=== PATIENT | female | born 1965 | race Caucasian/White ===

== ENCOUNTER 2017-08-17 11:52 | Emergency (ER) | payer MEDICAID, SELFPAY | END 2017-08-17 14:22 | disposition home or self-care (01) | PROVIDERS: Emergency Provider Nurse Practitioner Family; Family Provider Family Medicine Addiction Medicine; Visit Provider Nurse Practitioner Family | DX: M54.5 Low back pain (principal); Z88.6 Allergy status to analgesic agent; I10 Essential (primary) hypertension; K21.9 Gastro-esophageal reflux disease without esophagitis; E03.9 Hypothyroidism, unspecified | CPT/HCPCS: 96372; 99202 ==

== ENCOUNTER 2017-08-18 18:53 | Emergency (ER) | payer MEDICAID, SELFPAY | END 2017-08-18 21:57 | disposition home or self-care (01) | PROVIDERS: Emergency Provider Emergency Medicine; Family Provider Family Medicine Addiction Medicine; Visit Provider Emergency Medicine | DX: M54.42 Lumbago with sciatica, left side (principal); Z79.891 Long term (current) use of opiate analgesic | CPT/HCPCS: 96372; 99284; J2405 ==

== ENCOUNTER 2017-09-09 13:27 | Emergency (ER) | payer MEDICAID, SELFPAY ==
[2017-09-09 13:33] VITALS: BP 150/109; PULSE 109; RESP 24; TEMP 36.8; O2SAT 99; BMI 34.7
[2017-09-09 14:35] VITALS: BP 140/87; PULSE 97; RESP 18; TEMP 36.6; O2SAT 95
[2017-09-09 15:00] VITALS: BP 136/87; PULSE 115; TEMP 36.9; O2SAT 95
--- NOTE | 2017-09-09 15:57 | HMH.EDBACK ---
ED Disposition Clinical Impression: Lumbar pain Disposition: Home, Self-Care Condition on Discharge: Good Instructions: DI for Low Back Pain Additional Instructions: Please follow-up with your pain management physician as already scheduled. Take her medications prescribed today, as needed for pain. Prescriptions: Etodolac [Lodine 400mg Tab] 400 mg PO BID #20 tab Referrals: Anna Evans [Primary Care Provider] - Time of Disposition: 15:57 - Critical Care Critical Care Time: No Attestation: On 09/09/17, the high probability of a clinically significant, sudden or life threatening deterioration of the following system(s) required my full and direct attention, intervention and personal management. The time I documented below is in addition to time spent performing reported procedures but includes the following listed in this critical care notation. Medical Decision Making - Medical Records Medical records reviewed: Yes: I reviewed the patient's medical records. Vital Signs: 09/09/17 13:33 09/09/17 14:35 09/09/17 15:00 Temperature 98.2 F 97.8 F 98.4 F Temperature Source Oral Oral Oral Pulse Rate Pulse Rate [Left Brachial] 109 H 97 H 115 H Respiratory Rate 24 18 Blood Pressure Blood Pressure [Left Arm] 150/109 Blood Pressure [Right Arm] 140/87 136/87 Blood Pressure Mean [Left Arm] 122 Blood Pressure Mean [Right Arm] 104 103 Blood Pressure Source Blood Pressure Source [Left Arm] Automatic Cuff Blood Pressure Source [Right Arm] Automatic Cuff Automatic Cuff Blood Pressure Position Blood Pressure Position [Left Arm] Right Lateral Blood Pressure Position [Right Arm] Supine Sitting 02 Sat by Pulse Oximetry 99 95 95 Oxygen Delivery Method Room Air Room Air Room Air 09/09/17 17:09 Temperature Temperature Source Pulse Rate 116 H Pulse Rate [Left Brachial] Respiratory Rate 20 Blood Pressure 147/81 Blood Pressure [Left Arm] Blood Pressure [Right Arm] Blood Pressure Mean [Left Arm] Blood Pressure Mean [Right Arm] Blood Pressure Source Automatic Cuff Blood Pressure Source [Left Arm] Blood Pressure Source [Right Arm] Blood Pressure Position Sitting Blood Pressure Position [Left Arm] Blood Pressure Position [Right Arm] 02 Sat by Pulse Oximetry Oxygen Delivery Method Room Air Orders (Tests/Meds): ED MEDICATIONS Discontinued Medications Generic Name Dose Route Start Last Admin Trade Name Freq PRN Reason Stop Dose Admin Hydromorphone HCl 1 mg 09/09/17 13:58 09/09/17 14:30 Dilaudid 2mg/Ml Syringe IM 09/09/17 13:59 1 mg ONCE ONE Administration Ondansetron HCl 4 mg 09/09/17 13:58 09/09/17 14:31 Zofran 4mg/2ml Vial IM 09/09/17 13:59 4 mg ONCE ONE Administration - Jozef Inquiry Pt receiving controlled substance: No - Reevaluation(s) Time: 15:40 Reevaluation #1: up in the chair, medically stable, significantly better. Instructed to follow up with [facility] History I have reviewed the patient's past medical history: Yes Medical History: Denies:: Cancer, Diabetes Mellitus Type 1, Diabetes Mellitus Type 2, MRSA Amputation: No Fractures: Yes (COLLAR BONE;SHOULDER;ARM FRACTURES-LEFT SIDE) - *Social History Educational Level: Completed Grade School Smoking Status: Never smoker Alcohol Intake: never - Psychiatric History Expresses thoughts of harming self/others: None Suicide Plan Description: No Plan ROS Obtained: Yes All systems reviewed & no additional complaints - Musculoskeletal Musculoskeletal: Reports as per HPI, Reports back pain Physical Exam - General General appearance: alert, in distress (moderate) - Head Head exam: atraumatic, normocephalic, normal inspection - Eye Eye exam: Present: normal appearance, PERRL, EOMI - ENT ENT exam: Present: normal exam, normal oropharynx, mucous membranes moist, TM's normal bilaterally, normal external ear exam - Neck Neck exam: Present: normal inspectio
[2017-09-09 17:09] VITALS: BP 147/81; PULSE 116; RESP 20; O2SAT 96
== END 2017-09-09 17:11 | disposition home or self-care (01) ==
PROVIDERS: Emergency Provider Emergency Medicine; Family Provider Family Medicine Addiction Medicine; PCP Family Medicine Addiction Medicine
DX: M54.5 Low back pain (principal); Z79.899 Other long term (current) drug therapy
CPT/HCPCS: 96372; 99283; J2405

== ENCOUNTER 2017-10-01 13:49 | Emergency (ER) | payer MEDICAID, SELFPAY ==
[2017-10-01 14:11] VITALS: BP 141/85; PULSE 87; RESP 20; TEMP 37.1; O2SAT 98; BMI 34.7
--- NOTE | 2017-10-01 14:49 | HMH.EDUTC ---
[facility] [place] Disposition Clinical Impression: Chronic leg pain Qualifiers: Laterality: right Qualified Code(s): M79.604 - Pain in right leg; G89.29 - Other chronic pain Disposition: Home, Self-Care Condition on Discharge: Good Instructions: DI for Chronic Pain -- Adult Additional Instructions: Follow up with Pain management as scheduled FOllow up with family doctor for further treatment Return if needed You got a Tordol shot in the office today, no ibuprofen for the next 6 hour Referrals: Anna Evans [Primary Care Provider] - Time of Disposition: 15:10 Medical Decision Making - Medical Records Medical records reviewed: Yes: I reviewed the patient's medical records. Vital Signs: 10/01/17 14:11 Temperature 98.8 F Temperature Source Temporal Artery Scan Pulse Rate [Right] 87 Respiratory Rate 20 Blood Pressure [Right Arm] 141/85 Blood Pressure Mean [Right Arm] 103 Blood Pressure Source [Right Arm] Automatic Cuff Blood Pressure Position [Right Arm] Sitting 02 Sat by Pulse Oximetry 98 Oxygen Delivery Method Room Air - Jozef Inquiry Pt receiving controlled substance: No Jozef was queried for this patient: No [facility] [place] HPI - General Stated complaint: R Hip pain down leg and foot,no ao Mode of Arrival: Ambulatory Source of Information: Patient Limitations: No Limitations Description of Symptoms (Recalled from Triage Doc. by RN): RIGHT LOW BACK PAIN DOWN RIGHT LEG HEENT Symptoms (Recalled from RN notes): No Resp Symptoms (Recalled from RN notes): No Skin Symptoms (Recalled from RN notes): No MS Symptoms (Recalled from RN notes): Yes Functional Status (Recalled from RN notes): N - History of Present Illness Provider Complaint: Patient state that she is currently being seen and treated by pain management for chronic pain in left leg States that she was having pain in her leg today and she missed her appointment so she was here to see if there was anything we could give her for pain - Related Data Allergies Allergy/AdvReac Type Severity Reaction Status Date / Time tramadol Allergy Unknown HEART Verified 09/09/17 14:21 PALPITATIONS - Worker's Comp Is this a Worker's Comp case?: No [facility] History I have reviewed the patient's past medical history: Yes Medical History: Denies:: Cancer, Diabetes Mellitus Type 1, Diabetes Mellitus Type 2, MRSA Amputation: No Fractures: Yes (COLLAR BONE;SHOULDER;ARM FRACTURES-LEFT SIDE) - *Social History Smoking Status: Never smoker Alcohol Intake: never - Psychiatric History Expresses thoughts of harming self/others: None Suicide Plan Description: No Plan ROS Obtained: Yes All systems reviewed & no additional complaints Physical Exam - General General appearance: alert, in no apparent distress - Respiratory Respiratory exam: Present: normal lung sounds bilaterally. Absent: respiratory distress - Cardiovascular Cardiovascular exam: Present: regular rate, normal rhythm. Absent: JVD - Neurological Exam Neurological exam: Present: alert, oriented X3 - Other Other exam information: Patient has chronic pain in right leg, state that she missed her appointment today with pain management and needed something to help her with the pain in her right leg, patient educated that she needed to keep those appointments and follow up with family doctor for further treatment
--- NOTE | 2017-10-01 14:57 | ED_ITS ---
[facility] – [place] Disposition Clinical Impression: Chronic leg pain Qualifiers: Laterality: right Qualified Code(s): M79.604 - Pain in right leg; G89.29 - Other chronic pain Disposition: Home, Self-Care Condition on Discharge: Good Instructions: DI for Chronic Pain -- Adult Additional Instructions: Follow up with Pain management as scheduled FOllow up with family doctor for further treatment Return if needed You got a Tordol shot in the office today, no ibuprofen for the next 6 hour Referrals: Anna Evans [Primary Care Provider] - Time of Disposition: 15:10 Medical Decision Making - Medical Records Medical records reviewed: Yes: I reviewed the patient's medical records. Vital Signs: 10/01/17 14:11 Temperature 98.8 F Temperature Source Temporal Artery Scan Pulse Rate [Right] 87 Respiratory Rate 20 Blood Pressure [Right Arm] 141/85 Blood Pressure Mean [Right Arm] 103 Blood Pressure Source [Right Arm] Automatic Cuff Blood Pressure Position [Right Arm] Sitting 02 Sat by Pulse Oximetry 98 Oxygen Delivery Method Room Air - Jozef Inquiry Pt receiving controlled substance: No Jozef was queried for this patient: No [facility] [place] HPI - General Stated complaint: R Hip pain down leg and foot,no ao Mode of Arrival: Ambulatory Source of Information: Patient Limitations: No Limitations Description of Symptoms (Recalled from Triage Doc. by RN): RIGHT LOW BACK PAIN DOWN RIGHT LEG HEENT Symptoms (Recalled from RN notes): No Resp Symptoms (Recalled from RN notes): No Skin Symptoms (Recalled from RN notes): No MS Symptoms (Recalled from RN notes): Yes Functional Status (Recalled from RN notes): N - History of Present Illness Provider Complaint: Patient state that she is currently being seen and treated by pain management for chronic pain in left leg States that she was having pain in her leg today and she missed her appointment so she was here to see if there was anything we could give her for pain - Related Data Allergies Allergy/AdvReac Type Severity Reaction Status Date / Time tramadol Allergy Unknown HEART Verified 09/09/17 14:21 PALPITATIONS - Worker's Comp Is this a Worker's Comp case?: No [facility] History I have reviewed the patient's past medical history: Yes Medical History: Denies:: Cancer, Diabetes Mellitus Type 1, Diabetes Mellitus Type 2, MRSA Amputation: No Fractures: Yes (COLLAR BONE;SHOULDER;ARM FRACTURES-LEFT SIDE) - *Social History Smoking Status: Never smoker Alcohol Intake: never - Psychiatric History Expresses thoughts of harming self/others: None Suicide Plan Description: No Plan ROS Obtained: Yes All systems reviewed & no additional complaints Physical Exam - General General appearance: alert, in no apparent distress - Respiratory Respiratory exam: Present: normal lung sounds bilaterally. Absent: respiratory distress - Cardiovascular Cardiovascular exam: Present: regular rate, normal rhythm. Absent: JVD - Neurological Exam Neurological exam: Present: alert, oriented X3 - Other Other exam information: Patient has chronic pain in right leg, state that she missed her appointment today with pain management and needed something to help her with the pain in her right leg, patient educated that she needed to keep those appointments and follow up with family doctor for further treatment
[2017-10-01 15:24] VITALS: BP 140/80; PULSE 87; RESP 20; TEMP 37.1
== END 2017-10-01 15:29 | disposition home or self-care (01) ==
PROVIDERS: Emergency Provider Nurse Practitioner; Family Provider Family Medicine Addiction Medicine; PCP Family Medicine Addiction Medicine
DX: G89.29 Other chronic pain (principal); M79.604 Pain in right leg; M54.5 Low back pain
CPT/HCPCS: 96372; 99201

== ENCOUNTER → 2018-02-04 13:11 | Outpatient (CLI) | payer MEDICAID, SELFPAY ==
[2018-02-04 15:34] LABS: Free T4 (Free Thyroxine) 0.65 ng/dl (0.76-1.46); Thyroid Stimulating Hormone 8.73 uIU/ml (0.358-3.740)
== END ==
PROVIDERS: Visit Provider Family Medicine Addiction Medicine
DX: E03.9 Hypothyroidism, unspecified (principal)
CPT/HCPCS: 36415; 84439; 84443

== ENCOUNTER 2020-12-22 11:59 | Emergency (ER) | payer MEDICARE, MEDICAID, SELFPAY ==
[2020-12-22 12:25] VITALS: BP 153/92; PULSE 75; RESP 19; TEMP 37.1; O2SAT 98; BMI 35.1
--- NOTE | 2020-12-22 12:55 | HMH.EDUTC ---
[facility] [place]: COPD exacerbation Disposition: Home, Self-Care Condition on Discharge: Good Instructions: DI for Chronic Obstructive Pulmonary Disease Additional Instructions: Drink plenty of fluids. Take tylenol or ibuprofen for pain or fever. Take the medications as directed. Follow up with your regular doctor. GO TO THE ER FOR ANY WORSENING SYMPTOMS Prescriptions: predniSONE [Prednisone 20mg Tab] 20 mg PO BID 5 Days #10 tab Transmission Status: Received by [employer] # Benzonatate [Tessalon Perle 100mg Cap] 100 mg PO TIDP PRN #30 cap PRN Reason: Cough Transmission Status: Received by [employer] # Azithromycin [Z-Joseph 250mg Tab*] 250 mg PO UD DOSE PK #6 tab Transmission Status: Received by [employer] # Referrals: PCP,No [Primary Care Provider] - Time of Disposition: 12:59 Medical Decision Making - Medical Records Medical records reviewed: No: I reviewed the patient's medical records. - Jozef Inquiry Pt receiving controlled substance: No Vital Signs: 12/22/20 12:25 12/22/20 13:34 Temperature 98.7 F 98.3 F Temperature Source Oral Pulse Rate 74 Pulse Rate [Right] 75 Respiratory Rate 19 20 Blood Pressure 144/89 H Blood Pressure [Right Arm] 153/92 H Blood Pressure Mean [Right Arm] 112 Blood Pressure Source [Right Arm] Automatic Cuff Blood Pressure Position [Right Arm] Sitting 02 Sat by Pulse Oximetry 98 [facility] [place] - General Stated complaint: covid test, cov symptoms Time Seen by Provider: 12/22/20 12:35 Mode of Arrival: Ambulatory Source of Information: Patient Limitations: No Limitations Description of Symptoms (Recalled from Triage Doc. by RN): PT C/O NONPRODUCTIVE COUGH, CHEST CONGESTION AND A HALEY. THIS HAS BEEN ONGOING FOR THREE DAYS. NO EXPOSURE TO COVID THAT SHE IS AWARE OF. HEENT Symptoms (Recalled from RN notes): Yes (HALEY) Resp Symptoms (Recalled from RN notes): Yes (NON PRODUCTIVE COUGH AND CHEST CONGESTION) Skin Symptoms (Recalled from RN notes): No MS Symptoms (Recalled from RN notes): No Functional Status (Recalled from RN notes): NA - History of Present Illness Provider Complaint: She states that she has been having cough and chest congestion for the past 2 days. She has a history of copd. She denies any known exposure to covid-19. - Related Data Home Medications Medication Instructions Recorded Confirmed bisoprolol 5 1 tab PO ONCE 11/07/17 04/12/18 mg-hydrochlorothiazide 6.25 mg tablet Cetirizine HCl 10 mg PO DAILY 01/11/18 04/12/18 Duloxetine HCl 60 mg PO DAILY 01/11/18 04/12/18 Levothyroxine Sodium 125 mcg PO DAILY 01/11/18 04/12/18 [Levothyroxine 112mcg (0.112mg) Tab] Omeprazole [Omeprazole 40mg 40 mg PO DAILY 01/11/18 04/12/18 Capsule] Pregabalin [Lyrica 100mg Cap] 100 mg PO BID 01/11/18 04/12/18 Previous Rx's Medication Instructions Recorded Hydrocod/Acet 5/325 mg [[place] 1 tab PO Q6HP PRN #10 tab 04/12/18 5/325mg tablet] predniSONE [Prednisone 10mg Tab 10 mg PO DAILY #42 pack 04/12/18 Dose-Pack] estradiol 1 mg tablet 1 mg PO DAILY 30 Days #30 tab 07/11/18 Azithromycin [Z-Joseph 250mg Tab*] 250 mg PO UD DOSE PK #6 tab 12/22/20 Benzonatate [Tessalon Perle 100mg 100 mg PO TIDP PRN #30 cap 12/22/20 Cap] predniSONE [Prednisone 20mg 20 mg PO BID 5 Days #10 tab 12/22/20 Tab] Allergies Allergy/AdvReac Type Severity Reaction Status Date / Time tramadol Allergy Unknown HEART Verified 12/22/20 12:04 PALPITATIONS - Worker's Comp Is this a Worker's Comp case?: No H History - Hepatitis A Screen Drug use history?: No High risk sexual behaviors?: No History of sexually transmitted infection?: No Currently employed?: No Childcare worker?: No Do you have indoor plumbing?: Yes Do you have electricity?: Yes Attestation statement:: This patient has been screened for Hepatitis A risk factors. I have reviewed the siri
[2020-12-22 13:34] VITALS: BP 144/89; PULSE 74; RESP 20; TEMP 36.8
--- NOTE | 2020-12-22 18:12 | PC.NURSE ---
pt notified of positive covid test results
== END 2020-12-22 13:09 | disposition home or self-care (01) ==
PROVIDERS: Emergency Provider Nurse Practitioner Family
DX: J44.1 Chronic obstructive pulmonary disease with (acute) exacerbation (principal); Z20.822 Contact with and (suspected) exposure to COVID-19; I10 Essential (primary) hypertension; E11.9 Type 2 diabetes mellitus without complications; M79.7 Fibromyalgia; E03.9 Hypothyroidism, unspecified
CPT/HCPCS: G0463; 99202; U0003

== ENCOUNTER 2021-01-03 16:39 | Emergency (ER) | payer MEDICARE, MEDICAID, SELFPAY ==
[2021-01-03 16:40] VITALS: BP 109/82; PULSE 105; RESP 18; TEMP 36.9; O2SAT 94; BMI 34.5
--- NOTE | 2021-01-03 17:29 | HMH.EDUTC ---
[facility] [place] Clinical Impression: Sinusitis Qualifiers: Sinusitis location: unspecified location Chronicity: acute Recurrence: non-recurrent Qualified Code(s): J01.90 - Acute sinusitis, unspecified Disposition: Home, Self-Care Condition on Discharge: Good Instructions: DI for Sinusitis Additional Instructions: Drink plenty of fluids. Take tylenol or ibuprofen for pain or fever. Take the medications as directed. Follow up with your regular doctor. GO TO THE ER FOR ANY WORSENING SYMPTOMS Prescriptions: Amoxicillin [Amoxicillin 500mg Tab] 500 mg PO TID 10 Days #30 tab Transmission Status: Received by [employer] # predniSONE [Deltasone 10mg tablet] 10 mg PO BID 3 Days #6 tab Transmission Status: Received by [employer] # Referrals: Provider,Referral, [Primary Care Provider] - Time of Disposition: 17:33 Medical Decision Making - Medical Records Medical records reviewed: No: I reviewed the patient's medical records. - Jozef Inquiry Pt receiving controlled substance: No Vital Signs: 01/03/21 16:40 01/03/21 17:42 Temperature 98.5 F 98.5 F Temperature Source Oral Pulse Rate 105 H Pulse Rate [Right Brachial] 105 H Respiratory Rate 18 18 Blood Pressure 109/82 L Blood Pressure [Right Arm] 109/82 L Blood Pressure Mean [Right Arm] 91 Blood Pressure Source [Right Arm] Automatic Cuff Blood Pressure Position [Right Arm] Sitting 02 Sat by Pulse Oximetry 94 L Oxygen Delivery Method Room Air [facility] [place] - General Stated complaint: Left side face,dental pain Time Seen by Provider: 01/03/21 17:30 Mode of Arrival: Ambulatory Source of Information: Patient Limitations: No Limitations Description of Symptoms (Recalled from Triage Doc. by RN): PATIENT C/O PAIN AND PRESSURE TO LEFT SIDE OF FACE INTO GUMS AND EAR X 2 DAYS. RECENT HISTORY OF COVID HEENT Symptoms (Recalled from RN notes): Yes Resp Symptoms (Recalled from RN notes): No Skin Symptoms (Recalled from RN notes): No MS Symptoms (Recalled from RN notes): No Functional Status (Recalled from RN notes): WNL - History of Present Illness Provider Complaint: She c/o left sided facial pressure and pain. She also has nasal congestion. She had covid recently, but she got better from that and she is now off of quarentine. She thinks that she has a sinus infection . - Related Data Home Medications Medication Instructions Recorded Confirmed bisoprolol 5 1 tab PO ONCE 11/07/17 04/12/18 mg-hydrochlorothiazide 6.25 mg tablet Cetirizine HCl 10 mg PO DAILY 01/11/18 04/12/18 Duloxetine HCl 60 mg PO DAILY 01/11/18 04/12/18 Levothyroxine Sodium 125 mcg PO DAILY 01/11/18 04/12/18 [Levothyroxine 112mcg (0.112mg) Tab] Omeprazole [Omeprazole 40mg 40 mg PO DAILY 01/11/18 04/12/18 Capsule] Pregabalin [Lyrica 100mg Cap] 100 mg PO BID 01/11/18 04/12/18 Previous Rx's Medication Instructions Recorded Hydrocod/Acet 5/325 mg [[place] 1 tab PO Q6HP PRN #10 tab 04/12/18 5/325mg tablet] predniSONE [Prednisone 10mg Tab 10 mg PO DAILY #42 pack 04/12/18 Dose-Pack] estradiol 1 mg tablet 1 mg PO DAILY 30 Days #30 tab 07/11/18 Azithromycin [Z-Joseph 250mg Tab*] 250 mg PO UD DOSE PK #6 tab 12/22/20 Benzonatate [Tessalon Perle 100mg 100 mg PO TIDP PRN #30 cap 12/22/20 Cap] predniSONE [Prednisone 20mg 20 mg PO BID 5 Days #10 tab 12/22/20 Tab] Amoxicillin [Amoxicillin 500mg Tab] 500 mg PO TID 10 Days #30 tab 01/03/21 predniSONE [Deltasone 10mg tablet] 10 mg PO BID 3 Days #6 tab 01/03/21 Allergies Allergy/AdvReac Type Severity Reaction Status Date / Time tramadol Allergy Unknown HEART Verified 12/22/20 12:04 PALPITATIONS - Worker's Comp Is this a Worker's Comp case?: No [facility] History - Hepatitis A Screen Drug use history?: No High risk sexual behaviors?: No History of sexually transmitted infection?: No Currently employed?: No Childcare worker?: No Do you have indoor plumbin
[2021-01-03 17:42] VITALS: BP 109/82; PULSE 105; RESP 18; TEMP 36.9; O2SAT 94
== END 2021-01-03 17:44 | disposition home or self-care (01) ==
PROVIDERS: Emergency Provider Nurse Practitioner Family
DX: J01.90 Acute sinusitis, unspecified (principal); Z86.16 Personal history of COVID-19; M79.7 Fibromyalgia; I10 Essential (primary) hypertension; E03.9 Hypothyroidism, unspecified; E11.9 Type 2 diabetes mellitus without complications; Z79.899 Other long term (current) drug therapy
CPT/HCPCS: G0463; 99202

== ENCOUNTER 2021-03-20 11:54 | Emergency (ER) | payer MEDICARE, MEDICAID, SELFPAY ==
[2021-03-20 11:54] VITALS: BP 122/77; PULSE 80; RESP 18; TEMP 36.9; O2SAT 94; BMI 35.1
--- NOTE | 2021-03-20 12:51 | XR_ITS ---
PROCEDURE: XR CHEST 2V CLINICAL HISTORY: cough COMPARISON: No exams were available for comparison FINDINGS: The cardiomediastinal silhouette and pulmonary vascularity are within normal limits. The lungs are clear without infiltrates, suspicious nodules, or pleural effusions. There are degenerative changes in the thoracic spine and shoulders. IMPRESSION: No acute findings. Dictated by: Delio Ruiz MD 03/20/2021 13:53 Delio Ruzi MD in OV 03/20/2021 13:53
--- NOTE | 2021-03-20 13:00 | HMH.EDUTC ---
[facility] [place] Disposition Clinical Impression: Exposure to COVID-19 virus, Bronchitis Sinusitis Qualifiers: Sinusitis location: unspecified location Chronicity: acute Recurrence: non-recurrent Qualified Code(s): J01.90 - Acute sinusitis, unspecified Disposition: Home, Self-Care Condition on Discharge: Good Instructions: DI for Sinusitis Additional Instructions: Drink plenty of fluids. Take tylenol or ibuprofen for pain or fever. Take the medications as directed. Follow up with your regular doctor. GO TO THE ER FOR ANY WORSENING SYMPTOMS Prescriptions: Promethazine/Dextromethorphan [Promethazine-Dm Syrup] 5 ml PO Q6HP PRN #240 syrup PRN Reason: Cough Transmission Status: Received by [employer] #[id number] predniSONE [Prednisone 20mg Tab] 20 mg PO BID 4 Days #8 tab Transmission Status: Received by [employer] #[id number] Azithromycin [Z-Joseph 250mg Tab*] 250 mg PO UD DOSE PK #6 tab Transmission Status: Received by [employer] #[id number] Referrals: Renata Henderson APRN [Primary Care Provider] - Time of Disposition: 13:45 Medical Decision Making - Medical Records Medical records reviewed: No: I reviewed the patient's medical records. - Jozef Inquiry Pt receiving controlled substance: No Vital Signs: 03/20/21 11:54 03/20/21 14:10 Temperature 98.4 F 98.4 F Temperature Source Oral Oral Pulse Rate 80 Pulse Rate [Left Radial] 80 Respiratory Rate 18 18 Blood Pressure 122/77 Blood Pressure [Right Arm] 122/77 Blood Pressure Mean [Right Arm] 92 Blood Pressure Source Automatic Cuff Blood Pressure Source [Right Arm] Automatic Cuff Blood Pressure Position Sitting Blood Pressure Position [Right Arm] Sitting 02 Sat by Pulse Oximetry 94 L Oxygen Delivery Method Room Air Room Air - Lab Data Lab Results 03/20/21 17:34: Strep Scn Rapid Clinic Negative [facility] [place] HPI - General Stated complaint: covid test Time Seen by Provider: 03/20/21 11:55 Mode of Arrival: Ambulatory Source of Information: Patient Limitations: No Limitations Description of Symptoms (Recalled from Triage Doc. by RN): c/o nasal drainage, sore throat, ear ache and good for a 2 days, wants to be tested for covid HEENT Symptoms (Recalled from RN notes): Yes Resp Symptoms (Recalled from RN notes): Yes Skin Symptoms (Recalled from RN notes): No MS Symptoms (Recalled from RN notes): No Functional Status (Recalled from RN notes): wnl - History of Present Illness Provider Complaint: She reports that she has had a cough and felt bad for the past 2 days. - Related Data Home Medications Medication Instructions Recorded Confirmed bisoprolol 5 1 tab PO ONCE 11/07/17 04/12/18 mg-hydrochlorothiazide 6.25 mg tablet Cetirizine HCl 10 mg PO DAILY 01/11/18 04/12/18 Duloxetine HCl 60 mg PO DAILY 01/11/18 04/12/18 Levothyroxine Sodium 125 mcg PO DAILY 01/11/18 04/12/18 [Levothyroxine 112mcg (0.112mg) Tab] Omeprazole [Omeprazole 40mg 40 mg PO DAILY 01/11/18 04/12/18 Capsule] Pregabalin [Lyrica 100mg Cap] 100 mg PO BID 01/11/18 04/12/18 Previous Rx's Medication Instructions Recorded Hydrocod/Acet 5/325 mg [[place] 1 tab PO Q6HP PRN #10 tab 04/12/18 5/325mg tablet] predniSONE [Prednisone 10mg Tab 10 mg PO DAILY #42 pack 04/12/18 Dose-Pack] estradiol 1 mg tablet 1 mg PO DAILY 30 Days #30 tab 07/11/18 Azithromycin [Z-Joseph 250mg Tab*] 250 mg PO UD DOSE PK #6 tab 12/22/20 Benzonatate [Tessalon Perle 100mg 100 mg PO TIDP PRN #30 cap 12/22/20 Cap] predniSONE [Prednisone 20mg 20 mg PO BID 5 Days #10 tab 12/22/20 Tab] Amoxicillin [Amoxicillin 500mg Tab] 500 mg PO TID 10 Days #30 tab 01/03/21 predniSONE [Deltasone 10mg tablet] 10 mg PO BID 3 Days #6 tab 01/03/21 Azithromycin [Z-Joseph 250mg Tab*] 250 mg PO UD DOSE PK #6 tab 03/20/21 Promethazine/Dextromethorphan 5 ml PO Q6HP PRN #240 syrup 03/20/21 [Promethazine-Dm Syrup] predniSONE [Prednisone 20mg 20 mg PO BID 4 Days #8 tab 03/20/21 T
[2021-03-20 14:10] VITALS: BP 122/77; PULSE 80; RESP 18; TEMP 36.9; O2SAT 94
[2021-03-20 17:35] LABS: UTC Strep Screen (Rapid) Negative (Negative)
== END 2021-03-20 14:11 | disposition home or self-care (01) ==
PROVIDERS: Emergency Provider Nurse Practitioner Family; PCP Nurse Practitioner
DX: J20.9 Acute bronchitis, unspecified (principal); J01.90 Acute sinusitis, unspecified; Z20.822 Contact with and (suspected) exposure to COVID-19; I10 Essential (primary) hypertension; E11.9 Type 2 diabetes mellitus without complications; E03.9 Hypothyroidism, unspecified; M79.7 Fibromyalgia; F33.1 Major depressive disorder, recurrent, moderate; Z79.899 Other long term (current) drug therapy
CPT/HCPCS: G0463; 71046; 87880; 99202; U0003

== ENCOUNTER 2021-07-27 21:35 | Emergency (ER) | payer MEDICARE, MEDICAID, SELFPAY ==
[2021-07-27 21:37] VITALS: BP 131/69; PULSE 93; RESP 18; TEMP 36.9; O2SAT 95; BMI 34.0
--- NOTE | 2021-07-27 21:51 | XR_ITS ---
PROCEDURE INFORMATION: Exam: XR Chest Exam date and time: 07/27/2021 9:51 PM Age: 56 years old Clinical indication: Patient HX: Cough, nonsmoker, no chest pain, no SX; Additional info: Congesrtion TECHNIQUE: Imaging protocol: XR of the chest. Views: 2 views. COMPARISON: CR XR CHEST 2V 03/20/2021 12:50 PM FINDINGS: Lungs: Central opacities with peribronchial cuffing, seen to advantage on the lateral chest radiograph suggest viral process versus reactive airways without convincing consolidation. Pleural spaces: Unremarkable. No pleural effusion. No pneumothorax. Heart/Mediastinum: Unremarkable. No cardiomegaly. Bones/joints: Unremarkable. IMPRESSION: Central opacities with peribronchial cuffing, seen to advantage on the lateral chest radiograph suggest viral process versus reactive airways without convincing consolidation.
[2021-07-27 22:11] LABS: Coronavirus 19, PCR Not Detected (NotDetected); Influenza A, PCR Not Detected (NotDetected); Influenza B, PCR Not Detected (NotDetected)
[2021-07-27 22:14] LABS: Basophils # 0.1 K/mm3 (0-0.2); Basophils % 0.5 % (0.1-2.0); Eosinophils # 0.1 K/mm3 (0.0-0.4); Eosinophils % 0.6 % (0.1-12.0); Hematocrit 39.1 % (37.0-47.0); Hemoglobin 13.6 g/dL (12.2-16.2); Lymphocytes # 2.8 K/mm3 (0.7-4.5); Lymphocytes % 25.6 % (10-50); Mean Corpuscular HGB Conc 34.7 g/dL (31.8-35.4); Mean Corpuscular Hemoglobin 29.7 pg (27.0-31.2); Mean Corpuscular Volume 85.5 fl (81-99); Mean Platelet Volume 9.2 fl (7.4-10.4); Monocytes # 0.6 K/mm3 (0.1-1.0); Monocytes % 5.5 % (1.7-9.3); Neutrophils # 7.3 K/mm3 (1.8-7.8); Neutrophils % 67.8 % (37.0-80.0); Platelet Count 160 K/mm3 (142-424); Red Blood Count 4.58 M/mm3 (4.20-5.40); Red Cell Distribution Width 14.5 % (11.5-17.5); White Blood Count 10.7 K/mm3 (4.8-10.8)
[2021-07-27 22:33] LABS: Alanine Aminotransferase 36 U/L (12-78); Albumin Level 4.1 g/dl (3.5-5.0); Albumin/Globulin Ratio 1.6 (1.1-1.8); Alkaline Phosphatase 46 U/L (38-126); Anion Gap 10.5 mEq/L (5-15); Aspartate Amino Transferase 50 U/L (14-36); Bilirubin,Total 0.4 mg/dl (0.2-1.3); Blood Urea Nitrogen 19 mg/dl (7-17); Calcium 9.6 mg/dl (8.4-10.2); Carbon Dioxide 30 mmol/L (22.0-30.0); Chloride 101 mmol/L (98-107); Creatinine Clearance Estimated 99 mL/min (50-200); Estimated Glomerular Filt Rate 74 ml/min (>60); GFR (African American) 90 ML/MIN (>60); Globulin 2.6 g/dL (1.3-3.2); Glucose 135 mg/dl (74-100); Lactic Acid 1.5 mmol/L (0.7-2.1); Potassium 3.5 mmoL/L (3.5-5.1); Sodium 138 mmol/L (136-145); Total Protein,Serum 6.7 g/dl (6.3-8.2)
[2021-07-27 22:38] LABS: C-Reactive Protein 12.4 mg/L (0-4)
[2021-07-27 22:52] LABS: Erythrocyte Sedimentation Rate 17 mm/hr (0-30)
--- NOTE | 2021-07-27 23:25 | HMH.EDURI ---
ED Disposition Clinical Impression: Bronchitis Disposition: Home, Self-Care Condition on Discharge: Good Instructions: DI for Acute Bronchitis Additional Instructions: fluids and use meds Prescriptions: levoFLOXacin [Levaquin 500mg tab] 500 mg PO DAILY #7 tab Transmission Status: Pending to [facility] # predniSONE [Prednisone 20mg Tab] 20 mg PO BID #10 tab Transmission Status: Pending to [facility] # Referrals: Provider,Referral, [Primary Care Provider] - - Critical Care Critical Care Time: No Attestation: On 07/27/21, the high probability of a clinically significant, sudden or life threatening deterioration of the following system(s) required my full and direct attention, intervention and personal management. The time I documented below is in addition to time spent performing reported procedures but includes the following listed in this critical care notation. Medical Decision Making - Medical Records Medical records reviewed: Yes: I reviewed the patient's medical records. - Jozef Inquiry Pt receiving controlled substance: No Vital Signs: 07/27/21 21:37 Temperature 98.4 F Temperature Source Oral Pulse Rate [Right] 93 H Respiratory Rate 18 Blood Pressure [Right Arm] 131/69 Blood Pressure Mean [Right Arm] 89 02 Sat by Pulse Oximetry 95 - Lab Data Lab results reviewed: Yes: I reviewed the patient's lab results. Lab Results 07/27/21 22:01: WBC 10.7, RBC 4.58, Hgb 13.6, Hct 39.1, MCV 85.5, MCH 29.7, MCHC 34.7, RDW 14.5, Plt Count 160, MPV 9.2, Neut % (Auto) 67.8, Lymph % (Auto) 25.6, [place] % (Auto) 5.5, Eos % (Auto) 0.6, Baso % (Auto) 0.5, Neut # (Auto) 7.3, Lymph # (Auto) 2.8, [place] # (Auto) 0.6, Eos # (Auto) 0.1, Baso # (Auto) 0.1, ESR 17 07/27/21 22:01: Sodium 138, Potassium 3.5, Chloride 101, Carbon Dioxide 30, Anion Gap 10.5, BUN 19 H, Creatinine 0.80, Estimated Creat Clear 99, Estimated GFR 74, Est GFR ( Amer) 90, Glucose 135 H, Calcium 9.6, Total Bilirubin 0.4, AST 50 H, ALT 36, Alkaline Phosphatase 46, C-Reactive Protein 12.4 H, Total Protein 6.7, Albumin 4.1, Globulin 2.6, Albumin/Globulin Ratio 1.6, Procalcitonin 0.070 07/27/21 22:01: Lactate 1.5 07/27/21 22:01: SARS-CoV-2 (PCR) Not detected, Influenza A Untype (PCR) Not detected, Influenza Type B (PCR) Not detected Result diagrams: 07/27/21 22:01 07/27/21 22:01 Orders (Tests/Meds): ED MEDICATIONS Generic Name Dose Route Start Last Admin Trade Name Freq PRN Reason Stop Dose Admin Sodium Chloride 1,000 mls @ 999 mls/hr 07/27/21 22:00 07/27/21 22:31 Sod Chlor 0.9% 1000ml Bag IV 07/27/21 23:00 999 mls/hr .Q1H1M NILO Administration Discontinued Medications Generic Name Dose Route Start Last Admin Trade Name Freq PRN Reason Stop Dose Admin Dexamethasone Sodium Phosphate 10 mg 07/27/21 21:57 07/27/21 22:30 Dexamethasone 4mg/Ml 5ml Mdv IV 07/27/21 21:58 10 mg ONCE ONE Administration Ketorolac Tromethamine 30 mg 07/27/21 21:57 07/27/21 22:30 Ketorolac 30mg/Ml Vial IV 07/27/21 21:58 30 mg ONCE ONE Administration ORDERS Category Date Time Status Blood Culture Stat Micro 07/27/21 22:01 Received - Radiology Data #1 Image(s): Chest Image Reviewed: Yes I have reviewed radiologist's interpretation Preliminary Findings: Abnormal Medical Decision Narrative: has resp sx with abn cxr - will treat for atypical URI/Sore Throat HPI - General Chief Complaint: Upper Respiratory Infection Stated Complaint: cough, runny nose HALEY, Dizzy Time Seen by Provider: 07/27/21 21:50 Mode of Arrival: Ambulatory Source of Information: Patient, Medical Record Limitations: No Limitations Description of Symptoms (Recalled from ER Triage Doc. by RN): pt c/o HALEY,cough,sore throat since yesterday - History of Present Illness HPI Narrative: cough and sore throat over the last 2 days MD Complaint: cough, sore throat Onset (ago): day(s) Severity:
[2021-07-27 23:28] VITALS: BP 128/70; PULSE 88; RESP 20; TEMP 36.8; O2SAT 97
== END 2021-07-27 23:36 | disposition home or self-care (01) ==
PROVIDERS: Emergency Provider Emergency Medicine
DX: R51.9 Headache, unspecified (principal); J20.9 Acute bronchitis, unspecified; E11.9 Type 2 diabetes mellitus without complications; E03.9 Hypothyroidism, unspecified; M79.7 Fibromyalgia; Z20.822 Contact with and (suspected) exposure to COVID-19
CPT/HCPCS: 71046; 80053; 83605; 84145; 85025; 85651; 86140; 87040; 96365; 96375; 99283; C9803; U0003; U0005

== ENCOUNTER 2021-10-14 11:56 | Emergency (ER) | payer MEDICARE, SELFPAY ==
[2021-10-14 12:15] VITALS: BP 151/89; PULSE 85; RESP 16; TEMP 37; O2SAT 97; BMI 26.4
--- NOTE | 2021-10-14 12:42 | HMH.EDUTC ---
[facility] [place] Disposition Clinical Impression: Otitis media Qualifiers: Otitis media type: suppurative Chronicity: acute Laterality: bilateral Recurrence: non-recurrent Spontaneous tympanic membrane rupture: without spontaneous rupture Qualified Code(s): H66.003 - Acute suppurative otitis media without spontaneous rupture of ear drum, bilateral Disposition: Home, Self-Care Condition on Discharge: Good Instructions: Middle Ear Infection Additional Instructions: Start antibiotic as soon as possible and be sure to take as ordered for full length of time even though he should start feeling better in 24-48 hours. Tylenol or Motrin as needed for pain or fever Encourage fluids, water, Gatorade, Powerade, Pedialyte if infant/toddler/child Warm compresses often helps when placed over ear Return immediately for new or worsening symptoms no noticeable improvement in 48-72 hours and in 10-14 days to ensure the ears are return to baseline. Follow-up with primary care Prescriptions: Amoxicillin [Amoxicillin 500mg Tab] 500 mg PO BID 10 Days #20 tab Transmission Status: Pending to [id number] Referrals: Shannon Young APRN [Primary Care Provider] - Time of Disposition: 12:50 Medical Decision Making - Jozef Inquiry Pt receiving controlled substance: No Vital Signs: 10/14/21 12:15 Temperature 98.6 F Temperature Source Oral Pulse Rate [Right Brachial] 85 Respiratory Rate 16 Blood Pressure [Right Arm] 151/89 H Blood Pressure Mean [Right Arm] 109 Blood Pressure Source [Right Arm] Automatic Cuff Blood Pressure Position [Right Arm] Sitting 02 Sat by Pulse Oximetry 97 Oxygen Delivery Method Room Air [facility] [place] HPI - General Chief complaint: Urgent Treatment Center Stated complaint: right ear pain Time Seen by Provider: 10/14/21 12:43 Mode of Arrival: Ambulatory Source of Information: Patient Limitations: No Limitations Description of Symptoms (Recalled from Triage Doc. by RN): PATIENT C/O BILATERAL EAR PAIN (GREATER IN RIGHT) X 3 DAYS HEENT Symptoms (Recalled from RN notes): Yes Resp Symptoms (Recalled from RN notes): No Skin Symptoms (Recalled from RN notes): No MS Symptoms (Recalled from RN notes): No Functional Status (Recalled from RN notes): WNL - History of Present Illness Provider Complaint: 56 yr old female presents for elio ear pain/ pt states pain worse on the rt. - Related Data Home Medications Medication Instructions Recorded Confirmed bisoprolol 5 1 tab PO ONCE 11/07/17 04/12/18 mg-hydrochlorothiazide 6.25 mg tablet Cetirizine HCl 10 mg PO DAILY 01/11/18 04/12/18 Duloxetine HCl 60 mg PO DAILY 01/11/18 04/12/18 Levothyroxine Sodium 125 mcg PO DAILY 01/11/18 04/12/18 [Levothyroxine 112mcg (0.112mg) Tab] Omeprazole [Omeprazole 40mg 40 mg PO DAILY 01/11/18 04/12/18 Capsule] Pregabalin [Lyrica 100mg Cap] 100 mg PO BID 01/11/18 04/12/18 Previous Rx's Medication Instructions Recorded Hydrocod/Acet 5/325 mg [Shirley 1 tab PO Q6HP PRN #10 tab 04/12/18 5/325mg tablet] estradiol 1 mg tablet 1 mg PO DAILY 30 Days #30 tab 07/11/18 Benzonatate [Tessalon Perle 100mg 100 mg PO TIDP PRN #30 cap 12/22/20 Cap] Promethazine/Dextromethorphan 5 ml PO Q6HP PRN #240 syrup 03/20/21 [Promethazine-Dm Syrup] levoFLOXacin [Levaquin 500mg 500 mg PO DAILY #7 tab 07/27/21 tab] predniSONE [Prednisone 20mg 20 mg PO BID #10 tab 07/27/21 Tab] Amoxicillin [Amoxicillin 500mg Tab] 500 mg PO BID 10 Days #20 tab 10/14/21 Allergies Allergy/AdvReac Type Severity Reaction Status Date / Time tramadol Allergy Unknown HEART Verified 12/22/20 12:04 PALPITATIONS - Worker's Comp Is this a Worker's Comp case?: No H History - Hepatitis A Screen Drug use history?: No High risk sexual behaviors?: No History of sexually transmitted infection?: No Currently employed?: No Childcare worker?: No Do you have indoor plumbing?: Yes Do you have electricity?: Yes Attestation statement::
[2021-10-14 12:48] VITALS: BP 151/89; PULSE 85; RESP 16; TEMP 37; O2SAT 97
== END 2021-10-14 12:54 | disposition home or self-care (01) ==
PROVIDERS: Emergency Provider Nurse Practitioner Family; PCP Nurse Practitioner
DX: H66.003 Acute suppurative otitis media without spontaneous rupture of ear drum, bilateral (principal); E11.9 Type 2 diabetes mellitus without complications
CPT/HCPCS: G0463; 99202; 99212; 99213

== ENCOUNTER 2023-10-19 10:08 | Emergency (ER) | payer MEDICARE, SELFPAY ==
[2023-10-19 10:40] VITALS: BP 158/85; PULSE 82; RESP 18; TEMP 36.5; O2SAT 95; BMI 33.9
--- NOTE | 2023-10-19 11:12 | ED_ITS ---
Discharge Plan Disposition Patient Disposition: Home, Self-Care Condition: Good Prescriptions Prescriptions: New amoxicillin [amoxicillin] 500 mg tablet 500 mg PO BID 10 Days Qty: 20 0RF No Action quetiapine 25 mg tablet 25 mg PO DAILY atorvastatin 40 mg tablet 40 mg PO DAILY doxepin 25 mg capsule 25 mg PO DAILY omeprazole 40 mg capsule,delayed release(DR/EC) 40 mg PO DAILY levothyroxine 75 mcg tablet 75 mcg PO DAILY propranolol 10 mg tablet 10 mg PO DAILY montelukast 10 mg tablet 10 mg PO DAILY estradiol 0.5 mg tablet 0.5 mg PO DAILY albuterol sulfate 90 mcg/actuation HFA aerosol inhaler 2 puff INHALATION Q4HP PRN (Reason: SOA) Referrals Follow up/Referrals: Provider,Referral, MD [Primary Care Provider] - See instructions Activity Restrictions/Add. Instructions Additional Instructions/Restrictions: Start antibiotic as soon as possible and be sure to take as ordered for full length of time even though he should start feeling better in 24-48 hours. Tylenol or Motrin as needed for pain or fever Encourage fluids, water, Gatorade, Powerade, Pedialyte if /toddler/child Warm compresses often helps when placed over ear Return immediately for new or worsening symptoms no noticeable improvement in 48-72 hours and in 10-14 days to ensure the ears are return to baseline. Follow-up with primary care Clinical Impressions Clinical Impression: Otitis media Qualifiers: Otitis media type: suppurative Chronicity: acute Laterality: right Recurrence: non-recurrent Spontaneous tympanic membrane rupture: without spontaneous rupture Qualified Code(s): H66.001 - Acute suppurative otitis media without spontaneous rupture of ear drum, right ear Instructions Patient Instructions: Middle Ear Infection Discharge ED Provider: Eliot ([facility] [[email or web address]])Christo [facility] [place], [place] HPI General Stated complaint: right ear pain Mode of Arrival: Ambulatory Source of Information: Patient Limitations: No Limitations Time Seen by Provider: 10/19/23 11:12 Description of Symptoms (Recalled from Triage Doc. by RN): Pt' symptoms are right ear pain, HALEY, cough, and drainage. HEENT Symptoms (Recalled from RN notes): Yes Resp Symptoms (Recalled from RN notes): No Skin Symptoms (Recalled from RN notes): No MS Symptoms (Recalled from RN notes): No Functional Status (Recalled from RN notes): n/a History of Present Illness Provider Complaint: 58 yr old female presents for right ear pain, HALEY, cough, and drainage. Related Data Home Medications Medication Instructions Recorded Confirmed albuterol sulfate 90 mcg/actuation 2 puff inhalation Q4HP PRN SOA 10/19/2309/27 aerosol inhaler atorvastatin 40 mg tablet 40 mg PO DAILY 10/19/23 10/19/23 doxepin 25 mg capsule 25 mg PO DAILY 10/19/23 10/19/23 estradiol 0.5 mg tablet 0.5 mg PO DAILY 10/19/23 10/19/23 levothyroxine 75 mcg tablet 75 mcg PO DAILY 10/19/23 10/19/23 montelukast 10 mg tablet 10 mg PO DAILY 10/19/23 10/19/23 omeprazole 40 mg capsule,delayed 40 mg PO DAILY 10/19/23 10/19/23 release propranolol 10 mg tablet 10 mg PO DAILY 10/19/23 10/19/23 quetiapine 25 mg tablet 25 mg PO DAILY 10/19/23 10/19/23 Previous Rx's Medication Instructions Recorded amoxicillin 500 mg tablet 500 mg PO BID 10 days #20 tabs 10/19/23 Allergies Allergy/AdvReac Type Severity Reaction Status Date / Time tramadol Allergy Unknown HEART Verified 10/19/23 10:49 PALPITATIONS Worker's Comp Is this a Worker's Comp case?: No [facility] Disclaimer: The information contained in this section may have been updated after the patient was seen, as this information can be updated by other users. Social History (Reviewed 10/19/23 @ 11:15 by Christo Mccabe ([facility] [[email or web address]]), [employer]) Smoking Status: Never smoker second hand exposure: No alcohol intake: never current occupational status: unemployed Travel in the last 8 weeks: None ROS Obtained: Yes All systems reviewed & no additional complaints except as documented Constitutional Constitutional: Reports system reviewed and no additional complaints, except as documented and Reports as per HPI Eyes Eyes: Reports system reviewed and no additional complaints, except as documented ENT Ears, Nose, Mouth, and Throat: Reports system reviewed and no additional complaints, except as documented, Reports as per HPI, Reports otalgia, Reports nasal congestion and Reports nasal discharge Cardiovascular Cardiovascular: Reports system reviewed and no additional complaints, except as documented Respiratory Respiratory: Reports system reviewed and no additional complaints, except as documented, Reports as per HPI and Reports cough Musculoskeletal Musculoskeletal: Reports system reviewed and no additional complaints, except as documented Neurologic Neurologic: Reports system reviewed and no additional complaints, except as documented Endocrine Endocrine: Reports system reviewed and no additional complaints, except as documented Allergic/Immunologic Allergic/Immunologic: Reports system reviewed and no additional complaints, except as documented Physical Exam General General appearance: alert and in no apparent distress Head Head exam: atraumatic Eye Eye exam: Present normal appearance and PERRL ENT ENT exam: Present normal oropharynx and mucous membranes moist Expanded ENT Exam TM/Canal exam: Right TM: erythema, bulging and loss of landmarks Respiratory Respiratory exam: Present normal lung sounds bilaterally Cardiovascular Cardiovascular exam: Present regular rate and normal rhythm Neurological Exam Neurological exam: Present alert and oriented X3 Skin Skin exam: Present warm and intact Medical Decision Making Medical Records Medical records reviewed: Yes I reviewed the patient's medical records. Jozef Inquiry Pt receiving controlled substance: No Jozef was queried for this patient: No Vital Signs: 10/19/23 10:40 Temperature 97.7 F Temperature Source Oral Pulse Rate [Right Radial] 82 Respiratory Rate 18 Blood Pressure [Right Arm] 158/85 H Blood Pressure Mean [Right Arm] 109 Blood Pressure Source [Right Arm] Automatic Cuff Blood Pressure Position [Right Arm] Sitting 02 Sat by Pulse Oximetry 95 Oxygen Delivery Method Room Air Lab Data Lab results reviewed: Yes I reviewed the patient's lab results.
[2023-10-19 11:24] VITALS: BP 158/85; PULSE 82; RESP 18; TEMP 36.5; O2SAT 95
== END 2023-10-19 11:30 | disposition home or self-care (01) ==
PROVIDERS: Emergency Provider Nurse Practitioner Family; PCP Nurse Practitioner Family
DX: H66.001 Acute suppurative otitis media without spontaneous rupture of ear drum, right ear (principal); R51.9 Headache, unspecified; R05.9 Cough, unspecified; R09.81 Nasal congestion
CPT/HCPCS: 99212; 99214; G0463

== ENCOUNTER 2024-08-21 16:30 | Emergency (ER) | payer MEDICARE, SELFPAY ==
[2024-08-21 17:30] VITALS: BP 136/89; PULSE 71; RESP 19; TEMP 36.8; O2SAT 97; BMI 34.2
--- NOTE | 2024-08-21 17:42 | ED_ITS ---
Discharge Plan Disposition Patient Disposition: Home, Self-Care Condition: Good Prescriptions Prescriptions: New benzonatate 100 mg capsule 100 mg PO TID PRN (Reason: cough) Qty: 30 0RF amoxicillin-pot clavulanate 875-125 mg Tablet 1 tab PO Q12H Qty: 20 0RF No Action losartan 50 mg tablet 50 mg PO DAILY Patient Comments: TAKE 1 TABLET BY MOUTH ONCE DAILY quetiapine 25 mg tablet 25 mg PO DAILY Patient Comments: TAKE 1 TABLET BY MOUTH ONCE DAILY metoprolol succinate 50 mg tablet extended release 24 hr 50 mg PO DAILY Patient Comments: TAKE 1 TABLET BY MOUTH ONCE DAILY omeprazole 40 mg capsule,delayed release(DR/EC) 40 mg PO DAILY Patient Comments: TAKE 1 CAPSULE BY MOUTH ONCE DAILY levothyroxine 100 mcg tablet 100 mcg PO DAILY Patient Comments: TAKE 1 TABLET BY MOUTH ONCE DAILY estradiol 0.5 mg tablet 0.5 mg PO DAILY metoprolol succinate 25 mg tablet extended release 24 hr 25 mg PO DAILY Patient Comments: TAKE 1 TABLET BY MOUTH ONCE DAILY duloxetine 60 mg capsule,delayed release(DR/EC) 60 mg PO DAILY Referrals Follow up/Referrals: Provider,Referral, MD [Primary Care Provider] - See instructions Activity Restrictions/Add. Instructions Additional Instructions/Restrictions: *Monitor Temp, Over the counter Motrin or Tylenol as directed/as needed Tylenol every 4 hours and Motrin every 6 hours (as long as your family doctor has told you that you can take it) for fever or pain. and straight to ER if unable to lower temp less than 101.0 after medication given *Warm salt water gargles may help to soothe the throat *Throat Lozenges? *Warm fluids like tea with honey may help to soothe the throat? *Sleep elevated *Humidifier/Vaporizer Follow up IMMEDIATELY for new or worsening symptoms or no Noticeable improvement over the next 48-72 hours. 911 for difficulty breathing or swallowing Clinical Impressions Clinical Impression: Otitis media Qualifiers: Otitis media type: suppurative Chronicity: acute Laterality: left Recurrence: non-recurrent Spontaneous tympanic membrane rupture: without spontaneous rupture Qualified Code(s): H66.002 - Acute suppurative otitis media without spontaneous rupture of ear drum, left ear Instructions Patient Instructions: Middle Ear Infection, DI for Sinusitis Print Language Print Language: Indonesian Discharge ED Provider[place] [facility] [place] General Stated complaint: cough, bilateral ear pain Mode of Arrival: Ambulatory Source of Information: Patient Limitations: No Limitations Time Seen by Provider: 08/21/24 17:42 Description of Symptoms (Recalled from Triage Doc. by RN): PATIENT C/O COUGH, EAR PAIN, DRAINAGE AND NAUSEA X 2 DAYS HEENT Symptoms (Recalled from RN notes): Yes Resp Symptoms (Recalled from RN notes): Yes Skin Symptoms (Recalled from RN notes): No MS Symptoms (Recalled from RN notes): No Functional Status (Recalled from RN notes): WNL History of Present Illness Provider Complaint: Patient states that she has been having pain and pressure in her ears, scratchy throat, cough, sinus congestion and pressure and over all not feeling well States today she was feeling worse and her ear was killing her so she came in to get it checked Related Data Home Medications ?Medication ?Instructions ?Recorded ?Confirmed duloxetine 60 mg capsule,delayed 60 mg PO DAILY 08/21/24 08/21/24 release estradiol 0.5 mg tablet 0.5 mg PO DAILY 08/21/24 08/21/24 levothyroxine 100 mcg tablet 100 mcg PO DAILY 08/21/24 08/21/24 losartan 50 mg tablet 50 mg PO DAILY 08/21/24 08/21/24 metoprolol succinate 25 mg 25 mg PO DAILY 08/21/24 08/21/24 tablet,extended release 24 hr metoprolol succinate 50 mg 50 mg PO DAILY 08/21/24 08/21/24 tablet,extended release 24 hr omeprazole 40 mg capsule,delayed 40 mg PO DAILY 08/21/24 08/21/24 release quetiapine 25 mg tablet 25 mg PO DAILY 08/21/24 08/21/24 Previous Rx's ?Medication ?Instructions ?Recorded amoxicillin 875 mg-potassium 1 tab PO Q12H #20 tabs 08/21/24 clavulanate 125 mg tablet benzonatate 100 mg capsule 100 mg PO TID PRN cough #30 caps 08/21/24 Allergies Allergy/AdvReac Type Severity Reaction Status Date / Time tramadol Allergy Unknown HEART Verified 10/19/23 10:49 PALPITATIONS Worker's Comp Is this a Worker's Comp case?: No PFSH PFSH Disclaimer: The information contained in this section may have been updated after the patient was seen, as this information can be updated by other users. Medical History (Updated 08/21/24 @ 17:53 by Louise Valentino APRN) Thyroid disease Liver disease History of gastroesophageal reflux (GERD) Diabetes mellitus, type 2 COPD (chronic obstructive pulmonary disease) Asthma Hyperlipidemia Hypertension Surgical History (Updated 08/21/24 @ 17:41 by Erica Perez RN) History of tubal ligation History of hysterectomy History of section History of cholecystectomy Social History , HOWARD) Smoking Status: Never smoker second hand exposure: No alcohol intake: never current occupational status: unemployed Travel in the last 8 weeks: None Have you lived/traveled outside [place] in past 30 days?: No Contact w/someone who lives/traveled outside US past 30 days?: No Exposure to someone with infectious disease in past 14 days?: No Do you have a fever (greater than 100.4 F or 38 C)?: No Have you tested positive for COVID-19: No Exposed to someone with COVID-19 in past 14 days?: No Do you have a sore throat?: No Do you have a cough?: Yes Do you have any weakness?: No Do you have any diarrhea?: No Are you experiencing any unusual bleeding?: No Do you have any muscle aches/pain?: No Do you have any abdominal pain?: No Are you experiencing loss of taste or smell?: No ROS Obtained: Yes All systems reviewed & no additional complaints except as documented and Yes Systems reviewed as appropriate & no additional complaints except as documented Constitutional Constitutional: Reports system reviewed and no additional complaints, except as documented and Reports as per HPI ENT Ears, Nose, Mouth, and Throat: Reports system reviewed and no additional complaints, except as documented, Reports as per HPI, Reports otalgia, Reports sinus pain and Reports sinus pressure Cardiovascular Cardiovascular: Reports system reviewed and no additional complaints, except as documented and Reports as per HPI Respiratory Respiratory: Reports system reviewed and no additional complaints, except as documented, Reports as per HPI, Denies shortness of breath, Denies chest congestion, Reports cough and Denies wheezing Gastrointestinal Gastrointestingal: Reports system reviewed and no additional complaints, except as documented and as per HPI Allergic/Immunologic Allergic/Immunologic: Denies wheezing Physical Exam General General appearance: alert and in no apparent distress ENT ENT exam: Present mucous membranes moist Expanded ENT Exam TM/Canal exam: Left TM: erythema and Bilateral TM: bulging Nose exam: Present sinus tenderness Throat exam: Present other (Pharyngeal erythema noted with PND) Respiratory Respiratory exam: Present normal lung sounds bilaterally; Absent respiratory distress or wheezes Cardiovascular Cardiovascular exam: Present regular rate, normal rhythm and normal heart sounds Abdominal Exam Abdominal exam: Present soft and normal bowel sounds; Absent distention or tenderness Neurological Exam Neurological exam: Present alert, oriented X3 and normal gait Medical Decision Making Medical Records Screening: Per USPSTF and CDC recommendations, given the prevalence of disease in our region, it is our hospital?s policy to screen for HIV and viral Hepatitis for all patients aged 18 and over and those with ongoing risk factors. Jozef Inquiry Pt receiving controlled substance: No Jozef was queried for this patient: No Vital Signs: 08/21/24 17:30 Temperature 98.3 F Temperature Source Oral Pulse Rate [Left Brachial] 71 Respiratory Rate 19 Blood Pressure [Left Arm] 136/89 Blood Pressure Mean [Left Arm] 104 Blood Pressure Source [Left Arm] Automatic Cuff Blood Pressure Position [Left Arm] Sitting 02 Sat by Pulse Oximetry 97 Oxygen Delivery Method Room Air
[2024-08-21] MEDS: METHYLPREDNISOLONE SOD SUCC 125MG VIAL 125 MG IM (17:59)
[2024-08-21 18:14] VITALS: BP 136/89; PULSE 71; RESP 19; TEMP 36.8; O2SAT 97
== END 2024-08-21 18:16 | disposition home or self-care (01) ==
PROVIDERS: Emergency Provider Nurse Practitioner; PCP Nurse Practitioner
DX: H66.002 Acute suppurative otitis media without spontaneous rupture of ear drum, left ear (principal)
CPT/HCPCS: 96372; 99213; G0381; J2919

== ENCOUNTER 2024-11-10 15:06 | Emergency (ER) | payer MEDICARE, SELFPAY ==
--- NOTE | 2024-11-10 15:10 | ED_ITS ---
<Statement entered by Deandra Nunez DO - 11/10/24 16:17> I was consulted by the RUDDY, and we discussed the complexity of the problems being addressed. I approved the treatment and management plan for this patient's care in the emergency department, thus performing a substantive portion of the medical decision making. Deandra Nunez DO Discharge Plan Disposition Patient Disposition: Home, Self-Care Condition: Good Prescriptions Prescriptions: No Action losartan 50 mg tablet 50 mg PO DAILY Patient Comments: TAKE 1 TABLET BY MOUTH ONCE DAILY quetiapine 25 mg tablet 25 mg PO DAILY Patient Comments: TAKE 1 TABLET BY MOUTH ONCE DAILY metoprolol succinate 50 mg tablet extended release 24 hr 50 mg PO DAILY Patient Comments: TAKE 1 TABLET BY MOUTH ONCE DAILY omeprazole 40 mg capsule,delayed release(DR/EC) 40 mg PO DAILY Patient Comments: TAKE 1 CAPSULE BY MOUTH ONCE DAILY levothyroxine 100 mcg tablet 100 mcg PO DAILY Patient Comments: TAKE 1 TABLET BY MOUTH ONCE DAILY estradiol 0.5 mg tablet 0.5 mg PO DAILY metoprolol succinate 25 mg tablet extended release 24 hr 25 mg PO DAILY Patient Comments: TAKE 1 TABLET BY MOUTH ONCE DAILY duloxetine 60 mg capsule,delayed release(DR/EC) 60 mg PO DAILY benzonatate 100 mg capsule 100 mg PO TID PRN (Reason: cough) Qty: 30 0RF amoxicillin-pot clavulanate 875-125 mg Tablet 1 tab PO Q12H Qty: 20 0RF Referrals Follow up/Referrals: Brittany Rodriguez APRN [Primary Care Provider] - See instructions Activity Restrictions/Add. Instructions Additional Instructions/Restrictions: Continue taking the Bactrim from your PCP. If you have new continued or worseni ng signs or symptoms follow-up with your PCP or return to the ER as needed. Change her packing once a day. You may wash with soap and water. Clinical Impressions Clinical Impression: Abscess Instructions Patient Instructions: DI for Skin Abscess Print Language Print Language: Albanian Discharge ED Provider: Deandra Nunez General Adult HPI General Chief complaint: Skin/Abscess/Foreign Body Stated complaint: right arm pain from knot Time Seen by Provider: 11/10/24 15:10 History of Present Illness HPI narrative: Patient presents for evaluation of a chest wall abscess. Patient has a right lateral chest wall abscess. Patient was seen by her PCP last week and was prescribed Bactrim for a small area that look like possibly a pimple . However it is dramatically changed in size over the last 48 hours become more red swollen and painful. It is not in her axilla but more on the lateral chest wall near the inferior aspect of the tail of the breast but not involving breast tissue. She denies any fever chills hemoptysis hematochezia melena nausea vomit diarrhea. Related Data Home Medications ?Medication ?Instructions ?Recorded ?Confirmed duloxetine 60 mg capsule,delayed 60 mg PO DAILY 08/21/24 08/21/24 release estradiol 0.5 mg tablet 0.5 mg PO DAILY 08/21/24 08/21/24 levothyroxine 100 mcg tablet 100 mcg PO DAILY 08/21/24 08/21/24 losartan 50 mg tablet 50 mg PO DAILY 08/21/24 08/21/24 metoprolol succinate 25 mg 25 mg PO DAILY 08/21/24 08/21/24 tablet,extended release 24 hr metoprolol succinate 50 mg 50 mg PO DAILY 08/21/24 08/21/24 tablet,extended release 24 hr omeprazole 40 mg capsule,delayed 40 mg PO DAILY 08/21/24 08/21/24 release quetiapine 25 mg tablet 25 mg PO DAILY 08/21/24 08/21/24 Previous Rx's ?Medication ?Instructions ?Recorded amoxicillin 875 mg-potassium 1 tab PO Q12H #20 tabs 08/21/24 clavulanate 125 mg tablet benzonatate 100 mg capsule 100 mg PO TID PRN cough #30 caps 08/21/24 Allergies Allergy/AdvReac Type Severity Reaction Status Date / Time tramadol Allergy Unknown HEART Verified 10/19/23 10:49 [facility] Disclaimer: The information contained in this section may have been updated after the patient was seen, as this information can be updated by other users. Medical History (Updated 11/10/24 @ 15:33 by SERA Puente) Thyroid disease Liver disease History of gastroesophageal reflux (GERD) Diabetes mellitus, type 2 COPD (chronic obstructive pulmonary disease) Asthma Hyperlipidemia Hypertension Surgical History (Updated 08/21/24 @ 17:41 by Erica Perez RN) History of tubal ligation History of hysterectomy History of section History of cholecystectomy Social History , [employer]) Smoking Status: Unknown if ever smoked second hand exposure: No alcohol intake: never current occupational status: unemployed Travel in the last 8 weeks: None Have you lived/traveled outside US in past 30 days?: No Contact w/someone who lives/traveled outside US past 30 days?: No Exposure to someone with infectious disease in past 14 days?: No Do you have a fever (greater than 100.4 F or 38 C)?: No Have you tested positive for COVID-19: No Exposed to someone with COVID-19 in past 14 days?: No Do you have a sore throat?: No Do you have a cough?: No Do you have any weakness?: No Do you have any diarrhea?: No Are you experiencing any unusual bleeding?: No Do you have any muscle aches/pain?: No Do you have any abdominal pain?: No Are you experiencing loss of taste or smell?: No Other Medical History Have you received the Flu Vaccine for this season: No Have you received the Pneumonia Vaccine: No ROS Obtained: Yes Systems reviewed as appropriate & no additional complaints except as documented Physical Exam General General appearance: alert and in no apparent distress Respiratory Respiratory exam: Present normal lung sounds bilaterally Cardiovascular Cardiovascular exam: Present regular rate Neurological Exam Neurological exam: Present alert and oriented X3 Medical Decision Making Medical Records Screening: Per USPSTF and CDC recommendations, given the prevalence of disease in our region, it is our hospital?s policy to screen for HIV and viral Hepatitis for all patients aged 18 and over and those with ongoing risk factors. Jozef Inquiry Pt receiving controlled substance: No Vital Signs: 11/10/24 15:23 Temperature 98.0 F Temperature Source Oral Pulse Rate [Radial] 73 Respiratory Rate 16 Blood Pressure [Right Arm] 153/81 H Blood Pressure Mean [Right Arm] 105 Blood Pressure Source [Right Arm] Automatic Cuff Blood Pressure Position [Right Arm] Sitting 02 Sat by Pulse Oximetry 99 Oxygen Delivery Method Room Air Orders (Tests/Meds): ED MEDICATIONS Discontinued Medications Generic Name Dose Route Start Last Admin Trade Name Freq PRN Reason Stop Dose Admin Lidocaine/Epinephrine 10 ml 11/10/24 15:16 11/10/24 15:26 Lidocaine 1% W/Epi 1:100,000 20ml Vial SQ 11/10/24 15:17 10 ml ONCE ONE Administration Trimethoprim/Sulfamethoxazole 1 each 11/10/24 15:17 11/10/24 15:26 Sulfa/Trimethoprim 1 Tablet PO 11/10/24 15:18 1 each ONCE ONE Administration ORDERS Category Date Time Status Wound Culture and Gram Stain Stat Micro 11/10/24 15:18 Ordered Medical Decision Narrative: In summary patient is a 59-year-old female who presents to the emergency department for evaluation of right chest wall abscess. Patient is hemodynamically stable upon arrival, afebrile. Physical exam is remarkable for approximately 4 cm area in the right lateral chest wall that is erythematous and fluctuant. There is no spreading erythema.. Differential diagnosis includes simple versus complex abscess. Initial workup was considered with labs and imaging however physical exam does not suggest deeper involvement or complex structure thus deferred. Initial interventions were considered however patient is already on antibiotics thus no further initial intervention required. Given this wound was prepped and draped and 5 cc lidocaine infiltrated subcutaneously and a stab incision was made with an 11 blade. An immediate amount of purulent material approximately 2 cc was expressed. Wound depth is only 1 cm. Wound irrigated and then packed with quarter inch gauze. Given this patient is appropriate for discharge with recommendation continue antibiotics and follow-up with PCP for any continued new or worsening signs or symptoms as needed. Procedures Abscess I/D Site: chest Side (if applicable): right Local Anesthetic: lidocaine 1% and with epi Amount of anesthesia used (mL): 5 Technique: incised with #11 blade Amount of fluid expressed (mL): 2 Irrigation: Yes Packing used?: plain Critical Care Critical Care Time Critical Care Time: No
[2024-11-10 15:23] VITALS: BP 153/81; PULSE 73; RESP 16; TEMP 36.7; O2SAT 99; BMI 35.5
[2024-11-10] MEDS: LIDOCAINE 1% W/EPI 1:100,000 20ML VIAL 10 ML SQ (15:26)
[2024-11-10 15:35] VITALS: BP 136/74; PULSE 74; RESP 16; TEMP 36.7; O2SAT 97
--- NOTE | 2024-11-15 17:41 | PC.NURSE ---
WOUND CULTURE DISCUSSED WITH DR TURPIN, NO NEW ORDERS
== END 2024-11-10 15:36 | disposition home or self-care (01) ==
PROVIDERS: Emergency Provider Emergency Medicine; PCP Nurse Practitioner
DX: M79.601 Pain in right arm (principal); L02.213 Cutaneous abscess of chest wall
CPT/HCPCS: 10060; 87070; 87077; 87186; 87205; 99283

== ENCOUNTER 2024-11-30 23:47 | Emergency (ER) | payer MEDICARE, SELFPAY ==
[2024-11-30 23:56] VITALS: BP 107/58; PULSE 82; RESP 18; TEMP 36.6; O2SAT 97; BMI 34.3
--- NOTE | 2024-12-01 00:17 | XR_ITS ---
PROCEDURE INFORMATION: Exam: XR Chest Exam date and time: 12/01/2024 12:31 AM Age: 59 years old Clinical indication: Other: Pre syncope; Additional info: Pre-syncope TECHNIQUE: Imaging protocol: Radiologic exam of the chest. Views: 2 views. COMPARISON: CR XR CHEST 2V 07/27/2021 9:52 PM FINDINGS: Lungs: Unremarkable. No consolidation. Pleural spaces: Unremarkable. No pleural effusion. No pneumothorax. Heart/Mediastinum: Unremarkable. No cardiomegaly. Bones/joints: Unremarkable. IMPRESSION: No acute findings.
--- NOTE | 2024-12-01 00:19 | ED_ITS ---
Discharge Plan Disposition Patient Disposition: Home, Self-Care Condition: Good Prescriptions Prescriptions: No Action losartan 50 mg tablet 50 mg PO DAILY Patient Comments: TAKE 1 TABLET BY MOUTH ONCE DAILY quetiapine 25 mg tablet 25 mg PO DAILY Patient Comments: TAKE 1 TABLET BY MOUTH ONCE DAILY metoprolol succinate 50 mg tablet extended release 24 hr 50 mg PO DAILY Patient Comments: TAKE 1 TABLET BY MOUTH ONCE DAILY omeprazole 40 mg capsule,delayed release(DR/EC) 40 mg PO DAILY Patient Comments: TAKE 1 CAPSULE BY MOUTH ONCE DAILY levothyroxine 100 mcg tablet 100 mcg PO DAILY Patient Comments: TAKE 1 TABLET BY MOUTH ONCE DAILY estradiol 0.5 mg tablet 0.5 mg PO DAILY metoprolol succinate 25 mg tablet extended release 24 hr 25 mg PO DAILY Patient Comments: TAKE 1 TABLET BY MOUTH ONCE DAILY duloxetine 60 mg capsule,delayed release(DR/EC) 60 mg PO DAILY benzonatate 100 mg capsule 100 mg PO TID PRN (Reason: cough) Qty: 30 0RF amoxicillin-pot clavulanate 875-125 mg Tablet 1 tab PO Q12H Qty: 20 0RF Referrals Follow up/Referrals: Brittany Rodriguez APRN [Primary Care Provider] - See instructions Activity Restrictions/Add. Instructions Additional Instructions/Restrictions: You were evaluated in the ER and are believed to be appropriate for discharge at this time. Continue your home medications as previously prescribed. Drink plenty of fluids including water, Gatorade, Pedialyte. If you do have diarrhea and would like to have it tested, bring the sample to your primary care doctor or back to the hospital and it can be tested for infection. Follow-up with your primary care doctor in 1 to 2 days for reevaluation. Return to the ER with any new, worsening, or otherwise concerning symptoms. Clinical Impressions Clinical Impression: Chills, Body aches, Pre-syncope, Diarrhea Print Language Print Language: Greenlandic Discharge ED Provider: Srikanth Khanna Adult HPI General Chief complaint: Weakness Stated complaint: body aches, headache, dizziness, nausea, weak arms Time Seen by Provider: 11/30/24 23:57 Mode of Arrival: Wheelchair Source of Information: Patient Description of Symptoms (Recalled from ER Triage Doc. by RN): PT C/O GENERALIZED WEAKNESS/DIZZINESS/BODY ACHES STARTING TODAY History of Present Illness HPI narrative: 59-year-old female with history of COPD not on home oxygen, hypothyroid, hypertension presents to the ER with 4 hours of bodyaches, nausea, 1 episode of diarrhea, chills, and a brief episode of lightheadedness where she thought she was going to pass out. Patient reports her symptoms started approximately 4 hours prior to arrival. She had eaten dinner, taken her nightly muscle relaxer, and was laying on the bed reading the Bible when she noticed her symptoms starting. She had chills and bodyaches to start with. She then developed nausea and had 1 episode of diarrhea. After the episode the diarrhea was when she had her episode of lightheadedness with she thought she might pass out. She has had no chest pain or difficulty breathing, no vomiting, no dysuria or hematuria, she has not had fever, sore throat, cough, congestion. She reports no other associated symptoms. She states she still has chills and generalized bodyaches. She took Zofran prior to arrival and her nausea is improved. She has not taken any other medications for her symptoms. Related Data Home Medications ?Medication ?Instructions ?Recorded ?Confirmed duloxetine 60 mg capsule,delayed 60 mg PO DAILY 08/21/24 08/21/24 release estradiol 0.5 mg tablet 0.5 mg PO DAILY 08/21/24 08/21/24 levothyroxine 100 mcg tablet 100 mcg PO DAILY 08/21/24 08/21/24 losartan 50 mg tablet 50 mg PO DAILY 08/21/24 08/21/24 metoprolol succinate 25 mg 25 mg PO DAILY 08/21/24 08/21/24 tablet,extended release 24 hr metoprolol succinate 50 mg 50 mg PO DAILY 08/21/24 08/21/24 tablet,extended release 24 hr omeprazole 40 mg capsule,delayed 40 mg PO DAILY 08/21/24 08/21/24 release quetiapine 25 mg tablet 25 mg PO DAILY 08/21/24 08/21/24 Previous Rx's ?Medication ?Instructions ?Recorded amoxicillin 875 mg-potassium 1 tab PO Q12H #20 tabs 08/21/24 clavulanate 125 mg tablet benzonatate 100 mg capsule 100 mg PO TID PRN cough #30 caps 08/21/24 Allergies Allergy/AdvReac Type Severity Reaction Status Date / Time tramadol Allergy Unknown HEART Verified 10/19/23 10:49 [facility] Disclaimer: The information contained in this section may have been updated after the patient was seen, as this information can be updated by other users. Medical History (Updated 12/01/24 @ 03:23 by Srikanth Khanna MD) Thyroid disease Liver disease History of gastroesophageal reflux (GERD) Diabetes mellitus, type 2 COPD (chronic obstructive pulmonary disease) Asthma Hyperlipidemia Hypertension Surgical History (Updated 08/21/24 @ 17:41 by Erica Perez RN) History of tubal ligation History of hysterectomy History of section History of cholecystectomy Social History Smoking Status: Never smoker second hand exposure: No alcohol intake: never current occupational status: unemployed Travel in the last 8 weeks: None Have you lived/traveled outside US in past 30 days?: No Contact w/someone who lives/traveled outside US past 30 days?: No Exposure to someone with infectious disease in past 14 days?: No Do you have a fever (greater than 100.4 F or 38 C)?: No Have you tested positive for COVID-19: No Exposed to someone with COVID-19 in past 14 days?: No Do you have a sore throat?: No Do you have a cough?: No Do you have any weakness?: Yes Do you have any diarrhea?: No Are you experiencing any unusual bleeding?: No Do you have any muscle aches/pain?: Yes Do you have any abdominal pain?: No Are you experiencing loss of taste or smell?: No Other Medical History Have you received the Flu Vaccine for this season: No Have you received the Pneumonia Vaccine: No ROS Obtained: Yes Systems reviewed as appropriate & no additional complaints except as documented per HPI Physical Exam General General appearance: alert, in no apparent distress and obese Head Head exam: atraumatic and normocephalic Eye Eye exam: Present PERRL and EOMI ENT ENT exam: Present mucous membranes moist Neck Neck exam: Present normal inspection and full ROM; Absent lymphadenopathy Chest Chest inspection: Present symmetric chest wall rise; Absent tenderness Respiratory Respiratory exam: Present normal lung sounds bilaterally and other (Saturating 94 to 97% on room air); Absent respiratory distress, wheezes or stridor Cardiovascular Cardiovascular exam: Present regular rate and normal rhythm Abdominal Exam Abdominal exam: Present soft; Absent distention or tenderness Extremities Exam Extremities exam: Present full ROM; Absent edema, joint swelling or calf tenderness Neurological Exam Neurological exam: Present alert and oriented X3; Absent motor sensory deficit Psychiatric Psychiatric exam: Present normal affect and normal mood Skin Skin exam: Present warm and dry Medical Decision Making Medical Records Medical records reviewed: Yes I reviewed the patient's medical records. Screening: Per USPSTF and CDC recommendations, given the prevalence of disease in our region, it is our hospital?s policy to screen for HIV and viral Hepatitis for all patients aged 18 and over and those with ongoing risk factors. MR Comment: Patient was evaluated in our ER in the department which for abscess. She was continued on previously prescribed Bactrim and discharged in stable condition after incision and drainage. She also had a [facility] encounter in July 2024 she was diagnosed with otitis media discharged on benzonatate and Augmentin Jozef Inquiry Pt receiving controlled substance: No Vital Signs: 11/30/24 23:56 12/01/24 00:30 12/01/24 01:00 Temperature 97.9 F Temperature Source Oral Pulse Rate 98 H 93 H Pulse Rate [Apical] 82 Respiratory Rate 18 Blood Pressure 127/68 115/59 L Blood Pressure [Right Arm] 107/58 L Blood Pressure Mean 87 77 Blood Pressure Mean [Right Arm] 74 Blood Pressure Source Blood Pressure Position 02 Sat by Pulse Oximetry 97 96 97 Oxygen Delivery Method Room Air 12/01/24 01:30 12/01/24 02:00 12/01/24 03:23 Temperature 98.2 F Temperature Source Oral Pulse Rate 98 H 95 H 92 H Pulse Rate [Apical] Respiratory Rate 20 Blood Pressure 113/57 L 103/41 L 100/48 L Blood Pressure [Right Arm] Blood Pressure Mean 73 62 Blood Pressure Mean [Right Arm] Blood Pressure Source Automatic Cuff Blood Pressure Position Sitting 02 Sat by Pulse Oximetry 97 97 Oxygen Delivery Method Room Air Lab Data Lab Results 11/30/24 23:57: SARS-CoV-2 (PCR) Not detected, Influenza Type A (PCR) Not detected, Influenza Type B (PCR) Not detected, RSV (PCR) Not detected, Rhinovirus (PCR) Not detected 12/01/24 00:05: WBC 10.7, RBC 4.84, Hgb 13.9, Hct 41.8, MCV 86.4, MCH 28.7, MCHC 33.3, RDW 13.7, Plt Count 204, MPV 11.1 H, Neut % (Auto) 85.7 H, Lymph % (Auto) 11.4, [place] % (Auto) 2.4, Eos % (Auto) 0.0 L, Baso % (Auto) 0.2, Neut # (Auto) 9.2 H, Lymph # (Auto) 1.2, [place] # (Auto) 0.3, Eos # (Auto) 0.0, Baso # (Auto) 0.0, PT 10.3, INR 0.91, Sodium 137, Potassium 3.3 L, Chloride 100, Carbon Dioxide 25, Anion Gap 15.3 H, BUN 20 H, Creatinine 1.00, Estimated Creat Clear 75, Estimated GFR 57 L, Est GFR ( Amer) 69, Glucose 149 H, Calcium 8.9, Total Bilirubin 0.6, AST 44 H, ALT 42, Alkaline Phosphatase 41, Troponin I < 0.01, Total Protein 7.2, Albumin 4.1, Globulin 3.1, Albumin/Globulin Ratio 1.3 12/01/24 02:08: Urine Color Yellow, Urine Appearance Clear, Urine pH 6.0, Ur Specific [place] >= 1.030, Urine Protein Trace, Urine Glucose (UA) Negative, Urine Ketones Negative, Urine Blood Negative, Urine Nitrate Negative, Urine Bilirubin Negative, Urine Urobilinogen 0.2, Ur Leukocyte Esterase Negative, Urine WBC 3-5, Ur Squamous Epith Cells 10-20, Urine Bacteria 1+, Hyaline Casts 5-10, Urine Mucus 1+ 12/01/24 00:05 12/01/24 00:05 Orders (Tests/Meds): ED MEDICATIONS Discontinued Medications Generic Name Dose Route Start Last Admin Trade Name Eric PRN Reason Stop Dose Admin Acetaminophen 1,000 mg 12/01/24 00:17 12/01/24 00:23 Acetaminophen 500mg Tab PO 12/01/24 00:18 1,000 mg ONCE ONE Administration Lactated Ringer's 1,000 mls @ 999 mls/hr 12/01/24 00:17 12/01/24 00:23 Lactated Ringer's 1000 Ml Bag IV 12/01/24 01:17 999 mls/hr .Q1H1M ONE Administration Ketorolac Tromethamine 15 mg 12/01/24 00:17 12/01/24 00:23 Ketorolac 30mg/Ml Vial IV 12/01/24 00:18 15 mg ONCE ONE Administration ORDERS Category Date Time Status CXR 2 view (NOT portable) [XR chest 2V] Stat Exams 12/01/24 00:17 Completed CBC w/Auto Diff [Complete Blood Count Auto Diff] Stat Lab 12/01/24 00:05 Completed CMP [Comprehensive Metabolic Panel] Stat Lab 12/01/24 00:05 Completed Mini Respiratory Panel Stat Lab 12/01/24 00:00 Completed PT INR [Prothrombin Time INR] Stat Lab 12/01/24 00:05 Completed Trop I [Troponin I] Stat Lab 12/01/24 00:05 Completed Urinalysis and Microscopic Stat Lab 12/01/24 02:08 Completed Medical Decision Narrative: In summary, this 59-year-old female with comorbidities described in the HPI which may not be at goal therapy presents to the emergency department today with concerns of bodyaches, chills, nausea, diarrhea, brief episode of lightheadedness nearly passing out. On initial evaluation patient is hemodynamically stable, afebrile, physical exam overall is benign with no acute findings. Differential diagnosis includes but is not limited to viral syndrome, with patient's lightheadedness I considered the possibility of arrhythmia or cardiac abnormality, she is a GCS 15 with no neurologic deficits and does not describe dizziness so I do not believe she has a neurologic etiology, with her diarrhea she may have an electrolyte abnormality, I also considered the possibility of urinary tract infection, with her history of COPD considered possibility of pneumonia though patient does not have cough, fever, or chest pain. Based on these concerns, I ordered serum labs, urinary studies, chest x- ray, cardiac workup, diarrhea panel. ECG personally interpreted demonstrates normal sinus rhythm, rate 88, normal axis, normal VA and QTc, no STEMI. Patient received IV fluids, Tylenol, Toradol initially for treatment. Labs personally reviewed demonstrate no anemia, patient does not have a total leukocytosis but she does have a mild neutrophilia and neutrophil predominance which could indicate early infection, PT/INR normal, CMP with slight prerenal azotemia, patient is already receiving IV fluids. Viral swab negative for all analytes. UA negative for findings of infection. Troponin undetectably low reassuring in the setting of nonacute ECG and patient not having any chest pain or shortness of breath. XR personally interpreted demonstrates no acute intrathoracic abnormality, no lobar infiltrate, see radiology read for final interpretation. On reassessment patient feels dramatically improved since receiving IV fluids, Toradol, Tylenol. She states she feels back to normal. Her blood pressure has remained in the low 100s which she states is low for her, she tends to have high blood pressure. She is not symptomatic from it at this time. She has been up and about in the ER and is asymptomatic. She feels very well and would like to be discharged which I believe is reasonable at this time. Since patient has a history of hypertension and usually takes daily blood pressure medications, I advised her to check her blood pressure in the morning before taking her medications in case her blood pressure continues to be somewhat low as I do not want her blood pressure to bottom out. She agrees with this. She has close follow-up scheduled already for this week with her PCP but I instructed her to call her primary care doctor first thing in the morning and discuss her symptoms and workup with her. Patient was given instructions on symptomatic monitoring and management, follow up instructions, and return precautions for the emergency department. Patient indicated understanding and was discharged in stable condition. Critical Care Critical Care Time Critical Care Time: No
[2024-12-01 00:23] LABS: Coronavirus 19, PCR Not Detected (NotDetected); Human Rhinovirus Not Detected (NotDetected); Influenza A, PCR Not Detected (NotDetected); Influenza B, PCR Not Detected (NotDetected); Respiratory Syncytial Virus Not Detected (NotDetected)
[2024-12-01] MEDS: ACETAMINOPHEN 500MG TAB 1000 MG PO (00:23)
[2024-12-01] MEDS: KETOROLAC 30MG/ML VIAL 15 MG IV (00:23)
[2024-12-01] MEDS: LACTATED RINGERS 1000ML 1,000 ML 999 ML IV (00:23)
--- NOTE | 2024-12-01 00:24 | ECG_ITS ---
APPROVED REPORT Exam: Resting ECG HR:88 bpm ECG Measurements Heart Rate 88 AXES [place] 170 P 65 QRSd 94 QRS 32 QT 379 T 53 QTc 425 Conclusion SINUS RHYTHM NONSPECIFIC T-WAVE ABNORMALITY No STEMI Electronically signed by : VALENTIN JORDAN, 12/01/2024 06:50:41
[2024-12-01 00:30] VITALS: BP 127/68; PULSE 98; O2SAT 96
[2024-12-01 00:33] LABS: Basophils % 0.2 % (0.1-2.0); Hematocrit 41.8 % (37.0-47.0); Hemoglobin 13.9 g/dL (12.2-16.2); Lymphocytes # 1.2 K/mm3 (0.7-4.5); Lymphocytes % 11.4 % (10-50); Mean Corpuscular HGB Conc 33.3 g/dL (31.8-35.4); Mean Corpuscular Hemoglobin 28.7 pg (27.0-31.2); Mean Corpuscular Volume 86.4 fl (81-99); Mean Platelet Volume 11.1 fl (7.4-10.4); Monocytes # 0.3 K/mm3 (0.1-1.0); Monocytes % 2.4 % (1.7-9.3); Neutrophils # 9.2 K/mm3 (1.8-7.8); Neutrophils % 85.7 % (37.0-80.0); Platelet Count 204 K/mm3 (142-424); Red Blood Count 4.84 M/mm3 (4.20-5.40); Red Cell Distribution Width 13.7 % (11.5-17.5); White Blood Count 10.7 K/mm3 (4.8-10.8)
[2024-12-01 00:40] LABS: INR 0.91 (0.9-1.1); Prothrombin Time 10.3 seconds (10.1-12.5)
[2024-12-01 00:54] LABS: Alanine Aminotransferase 42 U/L (12-78); Albumin Level 4.1 g/dl (3.5-5.0); Albumin/Globulin Ratio 1.3 (1.1-1.8); Alkaline Phosphatase 41 U/L (38-126); Anion Gap 15.3 mEq/L (5-15); Aspartate Amino Transferase 44 U/L (14-36); Bilirubin,Total 0.6 mg/dl (0.2-1.3); Blood Urea Nitrogen 20 mg/dl (7-17); Calcium 8.9 mg/dl (8.4-10.2); Carbon Dioxide 25 mmol/L (22.0-30.0); Chloride 100 mmol/L (98-107); Creatinine Clearance Estimated 75 mL/min (50-200); Estimated Glomerular Filt Rate 57 ml/min (>60); GFR (African American) 69 ML/MIN (>60); Globulin 3.1 g/dL (1.3-3.2); Glucose 149 mg/dl (74-100); Potassium 3.3 mmoL/L (3.5-5.1); Sodium 137 mmol/L (136-145); Total Protein,Serum 7.2 g/dl (6.3-8.2)
[2024-12-01 01:00] VITALS: BP 115/59; PULSE 93; O2SAT 97
[2024-12-01 01:27] LABS: Troponin I < 0.01 ng/ml (0.00-0.034)
[2024-12-01 01:30] VITALS: BP 113/57; PULSE 98; O2SAT 97
[2024-12-01 02:00] VITALS: BP 103/41; PULSE 95; O2SAT 97
[2024-12-01 02:15] LABS: Microscopic, Urine URINE MICROSCOPIC (MICROSCOPIC)
[2024-12-01 02:16] LABS: Appearance,Urine CLEAR (Clear); Bilirubin,Urine Negative (Negative); Blood, Urine Negative (Negative); Color,Urine YELLOW (Yellow); Glucose,Urine (UA) Negative (Negative); Ketones,Urine Negative (Negative); Leukocyte Esterase,Urine Negative (Negative); Nitrate,Urine Negative (Negative); Protein,Urine TRACE (Negative); Specific Gravity, Urine >= 1.030 (1.005-1.030); Urobilinogen,Urine 0.2 EU/dl (0.2)
[2024-12-01 02:35] LABS: Bacteria,Urine 1+ /lpf; Mucus,Urine 1+ /lpf
[2024-12-01 03:23] VITALS: BP 100/48; PULSE 92; RESP 20; TEMP 36.8; O2SAT 97
== END 2024-12-01 03:29 | disposition home or self-care (01) ==
PROVIDERS: Emergency Provider Emergency Medicine; PCP Nurse Practitioner
DX: R55 Syncope and collapse (principal); R19.7 Diarrhea, unspecified; R68.83 Chills (without fever); M79.10 Myalgia, unspecified site; R42 Dizziness and giddiness; R51.9 Headache, unspecified; R53.1 Weakness
CPT/HCPCS: 71046; 80053; 81001; 84484; 85025; 85610; 87631; 93005; 96361; 96374; 99284; J1885; J7120

== ENCOUNTER 2024-12-20 12:06 | Outpatient (CLI) | payer MEDICARE, SELFPAY ==
--- NOTE | 2024-12-20 12:07 | XR_ITS ---
PROCEDURE INFORMATION: Exam: XR Chest Exam date and time: 12/20/2024 12:18 PM Age: 59 years old Clinical indication: Shortness of breath; Additional info: Cough/chest congestion TECHNIQUE: Imaging protocol: Radiologic exam of the chest. Views: 2 views. Total images: 2 COMPARISON: CR XR CHEST 2V 12/01/2024 12:31 AM FINDINGS: Lungs: Atelectatic and/or infiltrative changes right upper lung. Atelectatic changes right lung base. Pleural spaces: Unremarkable. No pleural effusion. No pneumothorax. Heart/Mediastinum: The heart is not enlarged. Bones/joints: The thoracic spine demonstrates mild degenerative changes at multiple levels. IMPRESSION: 1. Atelectatic and/or infiltrative changes right upper lung. 2. Atelectatic changes right lung base.
== END 2024-12-20 23:59 | disposition home or self-care (01) ==
LOC: RAD 12:07
PROVIDERS: PCP Nurse Practitioner; Visit Provider Nurse Practitioner
DX: R09.89 Other specified symptoms and signs involving the circulatory and respiratory systems (principal)
CPT/HCPCS: 71046

== ENCOUNTER 2024-12-22 16:50 | Outpatient (CLI) | payer MEDICARE, SELFPAY ==
--- NOTE | 2024-12-22 | XR_ITS ---
PROCEDURE INFORMATION: Exam: XR Chest Exam date and time: 12/22/2024 4:55 PM Age: 59 years old Clinical indication: Cough and shortness of breath TECHNIQUE: Imaging protocol: Radiologic exam of the chest. Views: 2 views. COMPARISON: 1. CR XR CHEST 2V 12/20/2024 12:18 PM 2. CR XR CHEST 2V 12/01/2024 12:31 AM FINDINGS: Lungs: Small hazy opacity in the left lower lung and right upper lung. Pleural spaces: No pleural effusion. No pneumothorax. Heart/Mediastinum: Cardiomediastinal silhouette is normal. Bones/joints: No acute abnormality. Degenerative changes of the included spine. Upper extremity hardware noted. IMPRESSION: Small hazy opacity in the left lower lung and right upper lung, possible infectious/inflammatory process.
== END 2024-12-22 23:59 | disposition home or self-care (01) ==
LOC: RAD 16:51
PROVIDERS: PCP Nurse Practitioner; Visit Provider Nurse Practitioner
DX: J18.9 Pneumonia, unspecified organism (principal)
CPT/HCPCS: 71046

== ENCOUNTER 2025-01-03 21:14 | Emergency (ER) | payer MEDICARE, SELFPAY ==
[2025-01-03 21:24] VITALS: BP 155/86; PULSE 73; RESP 20; TEMP 37; O2SAT 96; BMI 75.6
[2025-01-03] MEDS: KETOROLAC 30MG/ML VIAL 15 MG IM (21:39)
[2025-01-03] MEDS: DEXAMETHASONE 4MG TABLET 10 MG PO (21:40)
--- NOTE | 2025-01-03 21:47 | HMH.EDGENADL ---
Discharge Plan Disposition Patient Disposition: Home, Self-Care Prescriptions Prescriptions: New prednisone 20 mg tablet 40 mg PO DAILY 5 Days Qty: 10 0RF No Action guaifenesin [Mucinex] 1,200 mg tablet extended release 12hr 1,200 mg PO BID Qty: 20 0RF azithromycin 250 mg tablet See Rx Instructions PO .COMPLEX Qty: 6 0RF Rx Instructions: For 250 mg dose pack: take 500 mg today (day 1), then 250 mg for 4 days (days 2-5) PO prednisone 20 mg tablet 20 mg PO BID Qty: 10 0RF amoxicillin-pot clavulanate 875-125 mg tablet 1 tab PO BID 10 Days Qty: 20 0RF azelastine 137 mcg (0.1 %) spray,non-aerosol 1 spray intranasal BID Qty: 30 0RF Rx Instructions: administer into each nostril benzonatate 100 mg capsule 100 mg PO BID PRN (Reason: cough) Qty: 20 0RF losartan 50 mg tablet 50 mg PO DAILY Patient Comments: TAKE 1 TABLET BY MOUTH ONCE DAILY quetiapine 25 mg tablet 25 mg PO DAILY Patient Comments: TAKE 1 TABLET BY MOUTH ONCE DAILY metoprolol succinate 50 mg tablet extended release 24 hr 50 mg PO DAILY Patient Comments: TAKE 1 TABLET BY MOUTH ONCE DAILY omeprazole 40 mg capsule,delayed release(DR/EC) 40 mg PO DAILY Patient Comments: TAKE 1 CAPSULE BY MOUTH ONCE DAILY levothyroxine 100 mcg tablet 100 mcg PO DAILY Patient Comments: TAKE 1 TABLET BY MOUTH ONCE DAILY estradiol 0.5 mg tablet 0.5 mg PO DAILY duloxetine 60 mg capsule,delayed release(DR/EC) 60 mg PO DAILY Referrals Follow up/Referrals: Brittany Rodriguez APRN [Primary Care Provider] - See instructions Activity Restrictions/Add. Instructions Additional Instructions/Restrictions: Call your family doctor to establish care for this visit to the emergency department and schedule follow-up within 48 hours to ensure improvement. If you have any worsening of your condition or any other concerning signs or symptoms, return to the emergency department or your primary care doctor for further evaluation. Clinical Impressions Clinical Impression: Left sciatic nerve pain Print Language Print Language: [place] Discharge ED Provider: Jaxon Arevalo General Adult [facility] General Chief complaint: PAIN Stated complaint: Left hip pain Time Seen by Provider: 01/03/25 21:16 Mode of Arrival: Ambulatory Source of Information: Patient Description of Symptoms (Recalled from ER Triage Doc. by RN): patient c/o left hip pain. History of sciatic pain and this feels similar. Denies any injury History of Present Illness HPI narrative: Please note that above description of symptoms, in this electronic medical record under categorization of recalled from ER triage doctor by RN are reflective of an initial nursing assessment, however, is not reflective of my full history and physical exam that was personally taken and clarified. Consequentially, this preceding description of symptoms, which may include the patient's categorized chief complaint in the EMR, do not reflect my personal clinical impression, and the ultimate description of history of present illness and patient stated complaints should be deferred to this section of the note. Unless stated otherwise or congruent with this section of the note, additional signs, symptoms, or incongruence should be interpreted as inaccurate with my clinical impression. Related Data Home Medications ?Medication ?Instructions ?Recorded ?Confirmed duloxetine 60 mg capsule,delayed 60 mg PO DAILY 08/21/24 12/20/24 release estradiol 0.5 mg tablet 0.5 mg PO DAILY 08/21/24 12/20/24 levothyroxine 100 mcg tablet 100 mcg PO DAILY 08/21/24 12/20/24 losartan 50 mg tablet 50 mg PO DAILY 08/21/24 12/20/24 metoprolol succinate 50 mg 50 mg PO DAILY 08/21/24 12/20/24 tablet,extended release 24 hr omeprazole 40 mg capsule,delayed 40 mg PO DAILY 08/21/24 12/20/24 release quetiapine 25 mg tablet 25 mg PO DAILY 08/21/24 12/20/24 Previous Rx's ?Medication ?Instructions ?Recorded amoxicillin 875 mg-potassium 1 tab PO BID 10 days #20 tabs 12/16/24 clavulanate 125 mg tablet azelastine 137 mcg (0.1 %) nasal 1 spray intranasal BID #30 mL 12/16/24 spray benzonatate 100 mg capsule 100 mg PO BID PRN cough #20 caps 12/16/24 prednisone 20 mg tablet 20 mg PO BID #10 tabs 12/16/24 azithromycin 250 mg tablet See Rx Instructions PO .COMPLEX #6 12/20/24 tabs guaifenesin 1,200 mg tablet, 1,200 mg PO BID #20 tabs 12/20/24 extended release 12 hr (Mucinex) prednisone 20 mg tablet 40 mg (2 x 20 mg) PO DAILY 5 days 01/03/25 #10 tabs Allergies Allergy/AdvReac Type Severity Reaction Status Date / Time tramadol Allergy Unknown HEART Verified 12/16/24 18:[address] [facility] Disclaimer: The information contained in this section may have been updated after the patient was seen, as this information can be updated by other users. Medical History (Updated 01/03/25 @ 22:42 by Jaxon Arevalo MD) Bronchitis Thyroid disease Liver disease History of gastroesophageal reflux (GERD) Diabetes mellitus, type 2 COPD (chronic obstructive pulmonary disease) Asthma Hyperlipidemia Hypertension Surgical History History of tubal ligation History of hysterectomy History of section History of cholecystectomy Social History Smoking Status: Never smoker second hand exposure: No alcohol intake: never current occupational status: unemployed Travel in the last 8 weeks?: None Have you lived/traveled outside [place] in past 30 days?: No Contact w/someone who lives/traveled outside [place] past 30 days?: No Exposure to someone with infectious disease in past 14 days?: No Do you have a fever (greater than 100.4 F or 38 C)?: No Have you tested positive for COVID-19?: No Exposed to someone with COVID-19 in past 14 days?: No Do you have a sore throat?: No Do you have a cough?: No Do you have any weakness?: No Do you have any diarrhea?: No Are you experiencing any unusual bleeding?: No Do you have any muscle aches/pain?: No Do you have any abdominal pain?: No Are you experiencing loss of taste or smell?: No Other Medical History Have you received the Flu Vaccine for this season: No Have you received the Pneumonia Vaccine: No ROS Obtained: Yes All systems reviewed & no additional complaints except as documented Physical Exam General General appearance: alert Comment: Uncomfortable, but in no acute distress Head Head exam: atraumatic and normocephalic Eye Eye exam: Present normal appearance, PERRL and EOMI Neck Neck exam: Present normal inspection, full ROM and trachea midline Respiratory Respiratory exam: Absent respiratory distress, wheezes, stridor, accessory muscle use or prolonged expiratory phase Cardiovascular Cardiovascular exam: Present other (Pulses equal symmetric in upper and lower extremities) Abdominal Exam Abdominal exam: Present soft; Absent distention, tenderness or pulsatile mass Extremities Exam Extremities exam: Absent edema Back Exam Back exam: Present full ROM and tenderness; Absent CVA tenderness (R) or CVA tenderness (L) Neurological Exam Neurological exam: Present alert, oriented X3 and CN II-XII intact; Absent motor sensory deficit Skin Skin exam: Present warm and dry; Absent diaphoresis or erythema Medical Decision Making Medical Records Medical records reviewed: Yes I reviewed the patient's medical records. Screening: Per USPSTF and CDC recommendations, given the prevalence of disease in our region, it is our hospital?s policy to screen for HIV and viral Hepatitis for all patients aged 18 and over and those with ongoing risk factors. Jozef Inquiry Pt receiving controlled substance: No Jozef was queried for this patient: No Vital Signs: 01/03/25 21:24 Temperature 98.6 F Temperature Source Oral Pulse Rate [Left] 73 Respiratory Rate 20 Blood Pressure [Right Arm] 155/86 H Blood Pressure Mean [Right Arm] 109 Blood Pressure Source [Right Arm] Automatic Cuff Blood Pressure Position [Right Arm] Sitting 02 Sat by Pulse Oximetry 96 Oxygen Delivery Method Room Air Orders (Tests/Meds): ED MEDICATIONS Discontinued Medications Generic Name Dose Route Start Last Admin Trade Name Gualbertoq PRN Reason Stop Dose Admin Dexamethasone 10 mg 01/03/25 21:23 01/03/25 21:40 Dexamethasone 4mg Tablet PO 01/03/25 21:24 10 mg ONCE ONE Administration Ketorolac Tromethamine 15 mg 01/03/25 21:23 01/03/25 21:39 Ketorolac 30mg/Ml Vial IM 01/03/25 21:24 15 mg ONCE ONE Administration Medical Decision Narrative: 59-year-old female presenting with back pain. She states that she has had sciatic pain in the past, but on the right side. She helped move some furniture, namely mattress, couple days prior to this and since that time has been crescendo in nature. Left side hip/flank pain that radiates down into the lateral aspect of her left lower leg. Has not noticed anything that makes any better. No weakness in her legs, no bowel or bladder dysfunction, no other concerning signs or symptoms including fevers, chills, midline back pain, hematuria or any other concerns. History was obtained via conversation with patient. On arrival, patient hemodynamically stable, alert, oriented x4, appropriate, GCS 15, moving all extremities spontaneously, pupils equal and reactive to light. Full physical exam performed and significant for well-appearing female who is in no acute distress, but is uncomfortable moving around in bed. Leaning toward her left. Midline lumbosacral vertebrae are sore, but not painful. She states that she does have some paraspinal muscle spasming when pushing on paraspinal muscles and causes pain to radiate from the left flank/hip down into the left side of leg. No pulsatile abdominal mass, abdominal pain, or any other concerns. Differential includes sciatic nerve pain, fracture, radiculopathy, radiculitis, among others. Patient placed on continuous cardiac monitoring and continuous pulse ox with initial blood pressure 155/86, heart rate 73, saturation 96% on room air. Because patient still clinically well, conservative management with IM Toradol and oral Decadron were administered. On reevaluation, patient states that she is feeling moderately better. Given patient presentation, workup, history, this most likely represents sciatic nerve pain in the setting of minor back injury. Because patient at baseline without signs or symptoms of clinical decompensation, deemed appropriate for discharge. Results were relayed to patient who voiced understanding and were agreeable to outpatient management and follow up. I discussed my clinical impression with patient and answered all questions. At this time, the evidence for any other entities in the differential is insufficient to warrant any further testing or ED observation. This was explained as well. Advisory was given that persistent or worsening symptoms require further evaluation. I confirmed the understanding of this discussion. Shaper Hand disclaimer Much of this encounter note is an electronic side seam tender spoken language to printed text. Electronic side seam tender of the spoken language may permit errors. Although I have reviewed the note, some errors may still exist. Critical Care Critical Care Time Critical Care Time: No
[2025-01-03 22:48] VITALS: BP 150/84; PULSE 75; RESP 18; TEMP 36.9; O2SAT 100
== END 2025-01-03 22:50 | disposition home or self-care (01) ==
PROVIDERS: Emergency Provider Emergency Medicine; PCP Nurse Practitioner
DX: M54.32 Sciatica, left side (principal); M25.552 Pain in left hip
CPT/HCPCS: 96372; 99283; J1885; J8540

== ENCOUNTER 2025-08-01 11:07 | Outpatient (CLI) | payer MEDICARE, SELFPAY ==
[2025-08-01 20:38] LABS: Coronavirus 19, PCR Not Detected (NotDetected); Influenza A, PCR Not Detected (NotDetected); Influenza B, PCR Not Detected (NotDetected)
== END 2025-08-01 23:59 | disposition home or self-care (01) ==
LOC: LAB.DROPOF 08-02 11:17
PROVIDERS: PCP Nurse Practitioner; Visit Provider Nurse Practitioner
DX: R09.89 Other specified symptoms and signs involving the circulatory and respiratory systems (principal); J06.9 Acute upper respiratory infection, unspecified; R05.1 Acute cough
CPT/HCPCS: 87631